=== PATIENT | male | born 1955 | race Caucasian/White ===

== ENCOUNTER → 2025-05-12 | Outpatient (CLI) | payer MEDICARE, SELFPAY ==
--- NOTE | 2025-05-12 11:14 | RAD_ITS ---
PROCEDURE: FINGER(S) MIN 2 VIEWS 05/12/2025 REASON FOR EXAM: CYST ON RIGHT INDEX TECHNIQUE: FINGER(S) MIN 2 VIEWS COMPARISON: No FINDINGS: Mild interphalangeal joint osteoarthritis. Overgrowth of the middle phalangeal head, best seen on the lateral view. No acute bone pathology. RAD/Finger(s) Min 2 Views IMPRESSION: Overgrowth of the middle phalangeal head which may represent a palpable lesion. Reading [facility]
== END | disposition home or self-care (01) ==
PROVIDERS: PCP Student in an Organized Health Care Education/Training Program; Referring Provider Surgery Plastic and Reconstructive Surgery; Visit Provider Surgery Plastic and Reconstructive Surgery
DX: M67.48 Ganglion, other site (principal)
CPT/HCPCS: 73140

== ENCOUNTER 2025-07-09 05:30 | Day surgery (SDC) | payer MEDICARE, SELFPAY ==
[2025-07-09] VITALS (8 sets, daily range): BP systolic 130–142; BP diastolic 71–77; PULSE 64–74; RESP 16–18; TEMP 36.1–36.6; O2SAT 94–96; BMI 31.4
--- OUTSIDE RECORDS SUMMARY | 2025-07-09 05:40 | XMS RPT_ITS | CCD ---
Author Organization [facility] Care Team Providers Care Crystal Calibrator Name Role Phone KOLTON PILAR Unavailable Unavailable KOLTON PILAR Unavailable Unavailable KOLTON PILAR Unavailable Unavailable NONE, NONE Unavailable Unavailable SKYE, LAZ Unavailable Unavailable SKYE, LAZ Unavailable Unavailable SKYE, LAZ Unavailable Unavailable SKYE, LAZ Unavailable Unavailable Bianca Capone MD Primary Care Provider Bianca Capone MD Primary Care Provider BIANCA CAPONE Attending Unavailable BIANCA CAPONE Primary Care Unavailable PARISH HENDERSON MD Attending Unavailable PARISH HENDERSON MD Consulting Unavailable PARISH HENDERSON MD Primary Care Unavailable PARISH HENDERSON MD Admitting Unavailable PROVIDER, UNKNOWN Consulting Unavailable PROVIDER, UNKNOWN Consulting Unavailable PARISH HENDERSON MD Attending Unavailable PARISH HENDERSON MD Consulting Unavailable PARISH HENDERSON MD Primary Care Unavailable PARISH HENDERSON MD Admitting Unavailable PROVIDER, UNKNOWN Consulting Unavailable PROVIDER, UNKNOWN Consulting Unavailable PARISH HENDERSON MD Attending Unavailable PARISH HENDERSON MD Consulting Unavailable PARISH HENDERSON MD Primary Care Unavailable PRAISH HENDERSON MD Admitting Unavailable PROVIDER, UNKNOWN Consulting Unavailable PROVIDER, UNKNOWN Consulting Unavailable Dr. Pilar Cole MD Attending Provider Dr. Parish Henderson MD Primary Care Provider Dr. Parish Henderson MD Referring Provider Dr. Pilar Cole MD Referring Provider Pilar Cole Attending Unavailable Marimar Álvarez Referring Unavailable Parish Henderson Primary Care Unavailable Pilar Cole Attending Unavailable Pilar Cole Referring Unavailable Parish Henderson Primary Care Unavailable Pilar Cole Referring Unavailable Parish Henderson Primary Care Unavailable Pilar Cole Attending Unavailable Allergies Allergy Classification Reported Allergen(s) Allergy Type Date of Onset Reaction(s) Facility Angiotensin Converting Enzyme (BRAXTON) Inhibitors (2 sources) Lisinopril Drug Allergy 0 Cough [facility] It (1 source) NO ALLERGY INFO; Translations: [NO ALLERGY INFO] Propensity to adverse reactions (disorder) [facility] Repository (4 sources) Lisinopril; Translations: [LISINOPRIL] Drug Allergy 0 Cough [facility] Medications Current Medications Medication Drug Class(es) Dates Sig (Normalized) Sig (Original) aspirin 81 mg delayed release oral tablet (5 sources) Platelet Aggregation Inhibitor, Nonsteroidal Anti-inflammatory Drug Start: 12-19-2018 take 1 tablet by mouth once daily aspirin 81 mg EC tablet Take 1 tablet by mouth 1 (one) time each day. 0 12/19/2018 Active atorvastatin 40 mg oral tablet (8 sources) HMG-CoA Reductase Inhibitor Start: 05-12-2025 take 1 tablet by mouth at bedtime Atorvastatin 40 mg tablet Active 40 mg PO AT BEDTIME May 12, 2025 12:00am Start: 04-15-2019 End: 12-24-2022 take 1 tablet by mouth once daily atorvastatin (Lipitor) 40 mg tablet Indications: Mixed hyperlipidemia Take 1 tablet (40 mg total) by mouth 1 (one) time each day. 90 tablet 3 12/29/2021 12/24/2022 Active cholecalciferol 0.05 mg oral tablet (5 sources) Vitamin D Start: 08-24-2020 take 1 capsule by mouth once daily cholecalciferol (Vitamin D-3) 50 mcg (2,000 unit) tablet Take 1 capsule by mouth 1 (one) time each day. 0 08/24/2020 Active Dulaglutide (6 sources) GLP-1 Receptor Agonist Start: 05-12-2025 Dulaglutide (Trulicity) 3 mg/0.5 mL pen injector Active 3 mg SC EVERY WEEK May 12, 2025 12:00am Start: 04-21-2022 Trulicity 3 mg /0.5 mL Indications: Mixed hyperlipidemia , Type 2 diabetes mellitus with diabetic mononeuropathy, with long-term current use of insulin ([facility]/HCC) , Pure hyperglyceridemia INJECT 0.5 ML (3 MG TOTAL) UNDER THE SKIN EVERY 7 (SEVEN) DAYS. 4 pen 11 04/21/2022 Active Start: 02-21-2022 Trulicity 3 mg /0.5 mL Indications: Mixed hyperlipidemia , Type 2 diabetes mellitus with diabetic mononeuropathy, with long-term current use of insulin (CMS/HCC) , Pure hyperglyceridemia INJECT 0.5 ML (3 MG TOTAL) UNDER THE SKIN EVERY 7 (SEVEN) DAYS. 4 pen 0 02/21/2022 Active Start: 05-19-2021 End: 10-28-2021 inject 1.5 mg by subcutaneous injection every week dulaglutide (Trulicity) 1.5 mg/0.5 mL pen injector Inject 1.5 mg under the skin 1 (one) time per week. 4 pen 3 05/19/2021 10/28/2021 Discontinued Start: 04-27-2021 End: 05-27-2021 inject 0.75 mg by subcutaneous injection every week dulaglutide (Trulicity) 0.75 mg/0.5 mL pen injector Indications: type 2 diabetes mellitus Inject 0.75 mg under the skin 1 (one) time per week. 4 pen 0 04/27/2021 05/27/2021 Active dulaglutide (Trulicity) 3 mg/0.5 mL pen injector (1 source) Start: 10-28-2021 dulaglutide (Trulicity) 3 mg/0.5 mL pen injector Indications: Mixed hyperlipidemia , Type 2 diabetes mellitus with diabetic mononeuropathy, with long-term current use of insulin (CMS/[facility]) , Pure hyperglyceridemia Inject 0.5 mL (3 mg total) under the skin every 7 (seven) days. 0.5 mL 3 10/28/2021 Active empagliflozin 10 mg oral tablet (2 sources) Sodium-Glucose Cotransporter 2 Inhibitor Start: 05-12-2025 take 1 tablet by mouth once daily Empagliflozin (Jardiance) 10 mg tablet Active 10 mg PO daily May 12, 2025 12:00am isopropyl alcohol 0.7 ml/ml medicated pad (5 sources) Start: 12-24-2018 alcohol swabs pads, medicated ALCOHOL PREP PADS 0 12/24/2018 Active levothyroxine sodium 0.025 mg oral tablet (7 sources) l-Thyroxine Start: 05-12-2025 take 1 tablet by mouth once daily in the morning Levothyroxine 25 mcg tablet Active 25 ug PO EVERY MORNING May 12, 2025 12:00am Start: 09-20-2021 take 1 tablet by olivia th once daily levothyroxine (Synthroid, Levoxyl) 25 mcg tablet TAKE 1 TABLET BY MOUTH ONCE EVERY MORNING,60 MINUTES BEFORE EATING OR DRINKING ANYTHING BESIDES WATER 90 tablet 3 09/20/2021 Active Start: 12-31-2020 levothyroxine (Synthroid, Levoxyl) 25 mcg tablet PLEASE SEE ATTACHED FOR DETAILED DIRECTIONS 0 12/31/2020 Active losartan potassium 50 mg oral tablet (8 sources) Angiotensin 2 Receptor Ferdinand Start: 05-12-2025 take 1 tablet by mouth once daily Losartan 50 mg tablet Active 50 mg PO daily May 12, 2025 12:00am Start: 02-16-2022 take 1 tablet by olivia th once daily losartan (Cozaar) 50 mg tablet Indications: Essential (primary) hypertension TAKE 1 TABLET (50 MG TOTAL) BY MOUTH EVERY NIGHT. SKIP DOSE OF THIS MEDICATION IF YOU ARE LIGHTHEADED, DIZZY, OR IF YOU HAVE OTHER SYMPTOMS OF LOW BP 90 tablet 3 02/16/2022 Active Start: 02-23-2021 take 1 tablet by olivia th once daily losartan (Cozaar) 50 mg tablet Take 1 tablet (50 mg total) by mouth every night. SKIP DOSE OF THIS MEDICATION IF YOU ARE LIGHTHEADED, DIZZY, OR IF YOU HAVE OTHER SYMPTOMS OF LOW BP 90 tablet 3 02/23/2021 Active Start: 08-24-2020 End: 02-23-2021 take 1 tablet by mouth once daily losartan (Cozaar) 25 mg tablet Take 1 tablet by mouth every night. SKIP DOSE OF THIS MEDICATION IF YOU ARE LIGHTHEADED, DIZZY, OR IF YOU HAVE OTHER SYMPTOMS OF LOW BP 0 08/24/2020 02/23/2021 Discontinued (Reorder) metFORMIN hydrochloride 1000 mg oral tablet (7 sources) Biguanide Start: 05-12-2025 take 1 tablet by mouth twice daily Metformin 1,000 mg tablet Active 1000 mg PO TWICE A DAY May 12, 2025 12:00am Start: 09-20-2021 take 1 tablet by olivia th twice daily metFORMIN (Glucophage) 1,000 mg tablet TAKE 1 TABLET BY MOUTH TWICE A DAY 180 tablet 4 09/20/2021 Active Start: 01-01-2021 take 1 tablet by olivia th twice daily metFORMIN (Glucophage) 1,000 mg tablet Take 1 tablet by mouth 2 (two) times a day. 0 01/01/2021 Active omega-3 acid ethyl esters (u sp) 1000 mg oral capsule (5 sources) Start: 10-27-2021 omega-3 acid e thyl esters (Lovaza) 1 gram capsule Take 2 capsules (2 g total) by mouth 2 (two) times a day. 360 capsule 3 10/27/2021 Active Start: 11-13-2020 omega-3 acid e thyl esters (Lovaza) 1 gram capsule Take 2 capsules by mouth 2 (two) times a day. 0 11/13/2020 Active [place]-3 Acid Ethyl Esters 1 gram capsule (2 sources) Start: 05-12-2025 [place]-3 Acid E thyl Esters 1 gram capsule Active 2 NMA PO TWICE A DAY May 12, 2025 12:00am SAW PALMETTO ORAL (5 sources) Start: 12-19-2018 take 750 mg by mouth twice daily SAW PALMETTO ORAL Take 750 mg by mouth 2 (two) times a day. 0 12/19/2018 Active Start: 12-19-2018 take 1500 mg by mout h twice daily SAW PALMETTO ORAL Take 1,500 mg by mouth 2 (two) times a day. 0 12/19/2018 Active sharps container (Sharps Container) (5 sources) Start: 12-24-2018 sharps contain er (Sharps Container) TO BE USED FOR USED SHARPS 0 12/24/2018 Active SITagliptin 100 mg oral tablet (9 sources) Dipeptidyl Peptidase 4 Inhibitor Start: 05-12-2025 take 1 tablet by mouth once daily Sitagliptin Phosphate (Januvia) 100 mg tablet Active 100 mg PO daily May 12, 2025 12:00am Start: 05-20-2022 take 1 tablet by olivia th once daily Januvia 100 mg tablet Indications: Pure hyperglyceridemia , Type 2 diabetes mellitus with diabetic mononeuropathy (CMS/HCC) TAKE 1 TABLET (100 MG TOTAL) BY MOUTH 1 (ONE) TIME EACH DAY. 90 tablet 1 05/20/2022 Active Start: 02-23-2021 take 1 tablet by olivia th once daily SITagliptin (Januvia) 100 mg tablet Indications: Pure hyperglyceridemia , Type 2 diabetes mellitus with diabetic mononeuropathy (CMS/HCC) Take 1 tablet (100 mg total) by mouth 1 (one) time each day. 180 tablet 3 02/23/2021 Active Start: 01-11-2021 End: 02-23-2021 take 1 tablet by mouth once daily Januvia 50 mg tablet Indications: Type 2 diabetes mellitus with diabetic mononeuropathy (CMS/HCC) , Pure hyperglyceridemia TAKE 1 TABLET BY MOUTH EVERY DAY 30 tablet 3 01/11/2021 02/23/2021 Discontinued (Reorder) Start: 08-24-2020 End: 02-23-2021 take 1 tablet by mouth once daily SITagliptin (Januvia) 25 mg tablet Take 1 tablet by mouth 1 (one) time each day. 0 08/24/2020 02/23/2021 Discontinued Completed/Discontinued Medications Medication Drug Class(es) Dates Sig (Normalized) Sig (Original) alpha lipoic acid powder powder (1 source) Start: 12-24-2018 End: 02-23-2021 alpha lipoic acid powder powder ALPHA-LIPOIC ACID POWD 0 12/24/2018 02/23/2021 Discontinued 3 ml insulin glargine 100 unt/ml pen injector (3 sources) Insulin Analog Start: 09-13-2019 End: 10-28-2021 insulin glargine (Lantus Solostar U-100 Insulin) 100 unit/mL (3 mL) injection Inject 45 Units under the skin every night. 0 09/13/2019 10/28/2021 Discontinued Start: 09-13-2019 insulin glargi ne (Lantus Solostar U-100 Insulin) 100 unit/mL (3 mL) injection Inject 50 Units under the skin every night. 0 09/13/2019 Active Problems Active Problems Problem Classification Problem Date Documented Da te Episodic/Chronic Diabetes mellitus with complications (12 sources) Type 2 diabetes mellitus; Translations: [Type 2 diabetes mellitus with diabetic mononeuropathy] Onset: 12-24-2018 Chronic Diabetes mellitus without complication (6 sources) Diabetes mellitus without mention of complication, type II or unspecified type, not stated as uncontrolled; Translations: [Type 2 diabetes mellitus without complications] Onset: 12-18-2017 08-16-2022 Chronic Disorders of lipid metabolism (17 sources) Mixed hyperlipidemia; Translations: [Mixed hyperlipidemia] Onset: 12-18-2017 Chronic Essential hypertension (5 sources) Essential (primary) hypertension; Translations: [Unspecified essential hypertension] Onset: 12-18-2017 Chronic Immunizations and screening for infectious disease (2 sources) Immunization due; Translations: [Encounter for immunization] Episodic Influenza (1 source) Influenza; Translations: [Influenza due to unidentified influenza virus with other respiratory manifestations] Episodic Other and unspecified benign neoplasm (2 sources) Polyp of colon; Translations: [Polyp of colon] Onset: 08-16-2022 Episodic Other connective tissue disease (3 sources) Digital mucous cyst; Translations: [Ganglion, unspecified hand] 05-12-2025 Episodic Other connective tissue disease (1 source) Ganglion, other site; Translations: [Ganglion, other site] Onset: 05-24-2025 Episodic Other connective tissue disease (1 source) Ganglion, unspecified hand; Translations: [Ganglion, unspecified hand] Onset: 06-19-2025 Episodic Thyroid disorders (9 sources) Hypothyroidism; Translations: [Hypothyroidism, unspecified] Onset: 06-27-2019 Chronic Past or Other Problems Problem Classification Problem Date Documented Da te Episodic/Chronic Acquired foot deformities (1 source) Talipes planus; Translations: [Flat foot [pes planus] (acquired), unspecified foot] Onset: 03-06-2019 08-16-2022 Episodic Diabetes mellitus without complication (1 source) Diabetes mellitus without complication; Translations: [DM2/NOS UNCOMP NSU] Onset: 01-31-2018 Other connective tissue disease (5 sources) Swelling of toe of left foot; Translations: [Other specified soft tissue disorders] Onset: 12-24-2018 01-04-2021 Episodic Other lower respiratory disease (5 sources) Dry cough; Translations: [Cough] Onset: 02-10-2020 Resolved: 08-16-2022 01-04-2021 Episodic Other skin disorders (5 sources) Change in skin lesion; Translations: [Disorder of the skin and subcutaneous tissue, unspecified] Onset: 12-24-2018 01-04-2021 Episodic Other skin disorders (5 sources) Foot callus; Translations: [Corns and callosities] Onset: 12-24-2018 01-04-2021 Episodic Skin and subcutaneous tissue infections (5 sources) Cellulitis and abscess of foot, except toes; Translations: [Cellulitis of right lower limb] Onset: 05-03-2017 Episodic Unclassified (10 sources) Encounter for screening for malignant neoplasm of prostate; Translations: [Screening for malignant neoplasms of prostate] Onset: 12-18-2017 Episodic Unclassified (1 source) FOOT CELLULITIS; Translations: [FOOT CELLULITIS] Onset: 05-03-2017 Results Test Name Value Interpretation Reference Range Facil ity Finger(s) Min 2 Viewson 04-16 Finger(s) Min 2 Views [facility] [address] [place], [place] [id number] Finger(s) Min 2 Views MR#: [id number] Acct: [id number] Name: VIVEK WASHBURN JrBrice Rep #: [id number] : 1955 M 69 From: Eugene Cancino MD PCP: Dr. Parish Henderson MD Status: REG CLI Study: Finger(s) Min 2 Views Date of Exam: 05/12/25 Exam# [id number] Ordering Dr: Pilar Cole MD PROCEDURE: FINGER(S) MIN 2 VIEWS 05/12/2025 REASON FOR EXAM: CYST ON RIGHT INDEX TECHNIQUE: FINGER(S) MIN 2 VIEWS COMPARISON: No FINDINGS: Mild interphalangeal joint osteoarthritis. Overgrowth of the middle phalangeal head, best seen on the lateral view. No acute bone pathology. RAD/Finger(s) Min 2 Views IMPRESSION: Overgrowth of the middle phalangeal head which may represent a palpable lesion. Reading Location: [facility] CC: Dr. Pilar Cole MD; Dr. Parish Henderson MD Livestock Inspector: Signed Normal [facility] Plastic Surgery Visit Report on 05-12-2025 Plastic Surgery Visit Report [facility] Plastic Reconstructive Surgery [address], [address] [place], [place] [address] OFFICE VISIT Date of Service: 05/12/25 MR#: [id number] Acct: [id number] Name: VIVEK WASHBURN Jr. Rep #: [id number] : 1955 Provider: Dr. Pilar Cole MD Age/Sex: 69/M Location: [facility] Status: Signed Intake Vital Signs 05/12/25 10:40 Height 6 ft 1 in Weight: 242 lb BMI 31.9 BP 134/76 H Blood Pressure Location Rt brachial Position Sitting Respiration 18 Pulse 67 Temp 97.9 F Pulse Oximetry (%) 95 Oxygen Delivery Method room air Intake Visit Reasons: MYXOID CYST R HAND Chief Complaint: cyst right index finger Allergies No Known Allergies Allergy (Unverified 05/12/25 10:41) Medications ???Medication ???Instructions ???Recorded ???Confirmed ???Type atorvastatin 40 mg tablet 40 mg PO QHS 05/12/25 05/12/25 His tory dulaglutide 3 mg/0.5 mL 3 mg subcut QWEEK 05/12/25 5 History subcutaneous pen injector (Trulicity) empagliflozin 10 mg tablet 10 mg PO QDAY 05/12/25 05/12/25 Hi story (Jardiance) levothyroxine 25 mcg tablet 25 mcg PO QAM 05/12/25 05/12/25 Hi story losartan 50 mg tablet 50 mg PO QDAY 05/12/25 05/12/25 Hi story metformin 1,000 mg tablet 1,000 mg PO BID 05/12/25 05/12/25 History omega-3 acid ethyl esters 1 gram 2 cap PO BID 05/12/25 05/12/25 His tory capsule sitagliptin phosphate 100 mg 100 mg PO QDAY 05/12/25 05/12/25 H istory tablet (Januvia) Have you fallen in the past year?: Yes (hurt knee -bruising) PFSH Medical History High cholesterol Hypertension Diabetes Bone fracture Back problem Arthritis Surgical History H/O hernia repair Family History Other Anxiety CVA (cerebral vascular accident) Colon cancer Diabetes Heart disease Skin cancer Social History Smoking Status: Never smoker alcohol intake: never substance use type: does not use additional social history: denies use of aspirin and ibuprofen pt denies vaping, denies edibles, denies marijuana use denies any family history of blood clots HPI MYXOID CYST R HAND Details: The patient is a 69-year-old male presenting with a right index finger cyst. The cyst has been present for approximately four months, initially appearing as a wart-like lesion with a clear liquid discharge, which was later identified as joint fluid. The patient attempted self-treatment with wart medication, resulting in skin peeling and temporary improvement. The patient has a history of arthritis, which was unexpectedly diagnosed during a recent consultation. There is a suspicion of a bone spur contributing to the cyst formation, as suggested by a previous physician (referred to plastics by dermatology, Dr. Álvarez). The patient has a history of diabetes mellitus, with a recent hemoglobin A1c level around 7.0%. The patient is on medication for diabetes and has been advised to avoid high-sugar foods, such as ice cream. The patient has a significant past medical history of traumatic amputation of the long finger at age 21, which was surgically reattached but later removed due to infection risk. ROS: - Musculoskeletal: Denies pain with axial loading of the right index finger - Endocrine: Reports diabetes mellitus, recent A1c around 7.0% Attestation: Documentation on this patient encounter was supported using ambient scribe technology/ voice AI technology. The patient consented to recording for the purpose of documenting the encounter. Provider reviewed content of the generated note prior to signature. ROS General General: Yes good health; No fatigue, fever(s) or weight loss HENMT HENMT: No rhinitis, sore throat/mouth sore, nasal congestion, contacts or glaucoma Endo Endocrine: No thyroid disease, polydipsia, heat intolerance, cold intolerance, hepatitis or excessive urine Skin Skin: No Bleeding, bruising, changing moles or suspicious lesion Musc Musculoskeletal: Yes joint pain and joint stiffness; No muscle weakness, back pain, osteoarthritis or Muscle aches/ myalgia Neuro Neurological: No headache(s), No lightheadedness and No numbness Cardio Cardiovascular: No chest pain, pacemaker, fatigue or shortness of breat with exertion Psych Psychiatric: No depression, claustrophobia or anxiety Resp Respiratory: No spitting up, shortness of breath, sleep apnea, asthma, emphysema, TB, Cough or Smoker Gastro Gastrointestinal: No diarrhea, constipation, blood in stool, nausea, vomiting or abdominal bloating Les Hematologic: No anemia, No bleeding and No abn (more content not included)... Normal [facility] T4-FREE (FREE THYROXINE)on 0 05-06-2025 Free T4 [Mass/Vol] 0.96 ng/dL Normal 0.76 - 1.46 [facility] Comment on above: Result Comment: P otential of falsely elevated results when biotin concentrations are > 10 ng/mL. Performed By: #### 2 [id number] #### [place] [address] TSHon 05-06-2025 TSH Qn 3.00 m[IU]/L Normal 0.35 - 3.74 [facility] Comment on above: Performed By: #### 2 [id number] #### [place] [address] CBC + DIFFon 03-12-2025 Baso # 0.02 x10EE3/UL Normal 0.00 - 0.10 [facility] Comment on above: Performed By: #### 2 [id number] #### [place] [address] Basophils/100 WBC (Bld) 0.3 % Normal 0.0 - 2.0 [facility] Comment on above: Performed By: #### 2 [id number] #### [place] [address] CBC + DIFF Normal [facility] Comment on above: Result Comment: CBC- COMPLETE BLOOD COUNT Performed By: #### 2 [id number] #### [place] [address] EO # 0.17 x10EE3/UL Normal 0.00 - 0.50 [facility] Comment on above: Performed By: #### 2 [id number] #### [place] [id number],[place] [address] Eosinophils/100 WBC (Bld) 2.7 % Normal 0.0 - 7.0 [facility] Comment on above: Performed By: #### 2 [id number] #### [facility],[address] [place] [address] Erythrocyte distribution width (RBC) [Ratio] 13.3 % Normal 12.0 - 15.6 [facility] Comment on above: Performed By: #### 2 [id number] #### [facility],[address] [place] [address] Hematocrit (Bld) [Volume fraction] 46.5 % Normal 40.0 - 52.0 [facility] Comment on above: Performed By: #### 2 [id number] #### [facility],[address] [place] [address] Hemoglobin (Bld) [Mass/Vol] 15.9 g/dL Normal 13.0 - 17.5 [facility] Comment on above: Performed By: #### 2 [id number] #### [facility],[address] [place] [address] Lymph # 2.10 x10EE3/UL Normal 0.80 - 2.80 [facility] Comment on above: Performed By: #### 2 01985 #### [facility],[address] [place], [place] [id number] Lymphocytes/100 WBC (Bld) 33.5 % Normal 20.0 - 45.0 [facility] Comment on above: Performed By: #### 2 [id number] #### [facility],[address] [place] [address] MANUAL DIFF N/A Normal [facility] Comment on above: Performed By: #### 2 [id number] #### [facility],[address] [place] [address] MCH (RBC) [Entitic mass] 33 pg Normal 27 - 33 [facility] Comment on above: Performed By: #### 2 [id number] #### [facility],[address] [place] [address] MCHC 34 X10 3 Normal 32 - 36 [facility] Comment on above: Performed By: #### 2 04643 #### [facility],[address] [place], [place] [id number] MCV (RBC) [Entitic vol] 97 fL Normal 81 - 98 [facility] Comment on above: Performed By: #### 2 [id number] #### [facility],[address] [place] [address] [place] # 0.61 x10EE3/UL Normal 0.20 - 1.00 [facility] Comment on above: Performed By: #### 2 05842 #### [facility],[address] [place] [address] MONOS % 9.7 % Normal 0.0 - 10.0 [facility] Comment on above: Performed By: #### 2 [id number] #### [facility],[address] [place], [place] [id number] Morphology Prabhu (Bld) [Interp] N/A Normal [facility] Comment on above: Performed By: #### 2 [id number] #### [facility],[address] [place] [address] Neut # 3.37 x10EE3/UL Normal 1.50 - 7.10 [facility] Comment on above: Performed By: #### 2 92947 #### [facility],[address] [place], [place] [id number] Neutrophils/100 WBC (Bld) 53.9 % Normal 46.0 - 76.0 [facility] Comment on above: Performed By: #### 2 30559 #### [facility],[address] [place], [place] [id number] PLATELET 220 x10EE3/UL Normal 150 - 450 [facility] Comment on above: Performed By: #### 2 86075 #### [facility],[address] [place] [address] Platelet mean volume (Bld) [Entitic vol] 7.2 fL Normal 6.4 - 10.5 [facility] Comment on above: Result Comment: AUTO MATED DIFFERENTIAL Performed By: #### 2 [id number] #### [facility],[address] [place] [address] RBC 4.80 x 10EE6/UL Normal 4.50 - 6.00 [facility] Comment on above: Performed By: #### 2 47625 #### [facility],[address] [place] [address] WBC 6.3 x 10EE3/UL Normal 4.5 - 10.8 [facility] Comment on above: Performed By: #### 2 [id number] #### [facility],[address] [place] [address] [id number] CMP with eGFRon 03-12-2025 AGE 69 years Normal [facility] Comment on above: Performed By: #### 2 12550 #### [facility],[address] [place] [address] 30889 Albumin [Mass/Vol] 4.1 g/dL Normal 3.4 - 5.0 [facility] Comment on above: Performed By: #### 2 50839 #### [facility],[address] [place] [address] 88989 Albumin/Globulin [Mass ratio] 1.3 {ratio} Normal 0.9 - 1.6 [facility] Comment on above: Performed By: #### 2 47643 #### [facility],[address] [place] [address] 40106 ALK PHOS 50 U/L Normal 46 - 116 [facility] Comment on above: Performed By: #### 2 31707 #### [facility],[address] [place] [address] 81284 ALT [Catalytic activity/Vol] 39 U/L Normal 16 - 63 [facility] Comment on above: Performed By: #### 2 32071 #### [facility],[address] [place] [address] 04157 Anion gap [Moles/Vol] 13 mmol/L Normal 10 - 20 [facility] Comment on above: Performed By: #### 2 54883 #### [facility],[address] [place] [address] 99201 AST [Catalytic activity/Vol] 18 U/L Normal 15 - 37 [facility] Comment on above: Performed By: #### 2 27550 #### [facility],[address] [place] [address] 81979 B/C RATIO 21 ratio Normal 0 - 30 [facility] Comment on above: Performed By: #### 2 18464 #### [facility],[address] [place] [address] 68401 Bilirubin [Mass/Vol] 0.8 mg/dL Normal 0.2 - 1.0 [facility] Comment on above: Performed By: #### 2 56301 #### [facility],[address] [place] [address] 82852 Calcium [Mass/Vol] 9.0 mg/dL Normal 8.5 - 10.1 [facility] Comment on above: Performed By: #### 2 05408 #### [facility],[address] [place] [address] 09829 Chloride [Moles/Vol] 104 mmol/L Normal 98 - 107 [facility] Comment on above: Performed By: #### 2 08714 #### [facility],[address] [place] [address] 62520 CMP with eGFR Normal [facility] Comment on above: Result Comment: COMP REHENSIVE METABOLIC PANEL Performed By: #### 2 16028 #### [facility],[address] [place] [address] 86794 CO2 [Moles/Vol] 28.5 mmol/L Normal 21.0 - 32.0 [facility] Comment on above: Performed By: #### 2 74997 #### [facility],[address] [place] [address] 71311 Creatinine [Mass/Vol] 0.76 mg/dL Normal 0.70 - 1.30 [facility] Comment on above: Performed By: #### 2 82807 #### [facility],[address] [place] [address] 91829 GFR/1.73 sq M.predicted among non-blacks MDRD (S/P/Bld) [Vol rate/Area] mL/min/{1.73_m2} Normal 60 - 999 [facility] Comment on above: Performed By: #### 2 01623 #### [facility],[address] [place] [address] Result Comment: ACCO RDING TO THE NATIONAL KIDNEY DISEASE EDUCATION PROGRAM(NKDE), A NORMAL eGFR IS A VALUE GREATER THAN OR EQUAL TO 60 ML/MIN/1.73 SQ METERS. CHRONIC KIDNEY DISEASE: <60mL/MIN/1.73 SQ METERS KIDNEY FAILURE: <15mL/MIN/1.73 SQ METERS THIS TEST SHOULD ONLY BE USED FOR PATIENTS 18 YEARS OF AGE AND OLDER. Globulin (S) [Mass/Vol] 3.2 g/dL Normal 1.5 - 3.8 [facility] Comment on above: Performed By: #### 2 58142 #### [facility],[address] [place] [address] 72794 Glucose [Mass/Vol] 120 mg/dL High 74 - 106 [facility] Comment on above: Performed By: #### 2 57375 #### [facility],[address] [place] [address] 74575 Potassium [Moles/Vol] 4.0 mmol/L Normal 3.5 - 5.1 [facility] Comment on above: Performed By: #### 2 25524 #### [address] [address] Protein [Mass/Vol] 7.3 g/dL Normal 6.4 - 8.2 [facility] Comment on above: Performed By: #### 2 45980 #### [facility],[address] [place] [address] 46273 Sodium [Moles/Vol] 141 mmol/L Normal 136 - 145 [facility] Comment on above: Performed By: #### 2 32372 #### [facility],[address] [place] [address] 86219 Urea nitrogen [Mass/Vol] 16 mg/dL Normal 7 - 18 [facility] Comment on above: Performed By: #### 2 24311 #### [facility],[address] [place] [address] 98994 HEMOGLOBIN A1C (POM)on 03-12 Glucose [Mass/Vol] 154.2 mg/dL High 0.0 - 0.0 [facility] Comment on above: Result Comment: BLDo HEMOGLOBIN A1C REFERENCE RANGESBLDo Suggested Diagnosis HbA1c(%) HbA1C (mmol/mol Diabetic >/=6.5 >/=48 Prediabetes 5.7 - 6.4 39 - 47 Normal <5.7 <39 Performed By: #### 2 56641 #### [facility],[address] [place] [address] 34496 HbA1c (Bld) [Mass fraction] 7.0 % High 0.0 - 6.5 [facility] Comment on above: Performed By: #### 2 61554 #### [facility],[address] [place] [address] 06771 LIPID PROFILEon 03-12-2025 Cholesterol [Mass/Vol] 95 mg/dL Normal 0 - 240 [facility] Comment on above: Performed By: #### 2 03876 #### [facility],[address] [place] [address] 16266 Cholesterol in HDL [Mass/Vol] 44 mg/dL Normal 40 - 60 [facility] Comment on above: Performed By: #### 2 02837 #### [facility],[address] [place] [address] 75225 Cholesterol in LDL [Mass/Vol] 32 mg/dL Normal 0 - 129 [facility] Comment on above: Performed By: #### 2 11710 #### [facility],[address] [place] [address] 26318 Cholesterol.total/Adrianna sterol in HDL [Mass ratio] 2.2 {ratio} Normal 0.0 - 5.0 [facility] Comment on above: Performed By: #### 2 19200 #### [facility],[address] [place] [address] 48798 Lipid 1996 panel Normal [facility] Comment on above: Result Comment: LIPI D PROFILE Performed By: #### 2 99681 #### [facility],[address] [place] [address] 85818 Triglyceride [Mass/Vol] 97 mg/dL Normal 0 - 150 [facility] Comment on above: Performed By: #### 2 40861 #### [facility],[address] [place] [address] 39161 TSHon 03-12-2025 TSH Qn 4.54 m[IU]/L High 0.35 - 3.74 [facility] Comment on above: Performed By: #### 2 49591 #### [facility],[address] [place] [address] 41526 HEMOGLOBIN A1C (POM)on 09-19 Glucose [Mass/Vol] 142.7 mg/dL High 0.0 - 0.0 [facility] Comment on above: Result Comment: BLDo HEMOGLOBIN A1C REFERENCE RANGESBLDo Suggested Diagnosis HbA1c(%) HbA1C (mmol/mol Diabetic >/=6.5 >/=48 Prediabetes 5.7 - 6.4 39 - 47 Normal <5.7 <39 Performed By: #### 2 52065 #### [facility],[address] [place] [address] 23239 HbA1c (Bld) [Mass fraction] 6.6 % High 0.0 - 6.5 [facility] Comment on above: Performed By: #### 2 58827 #### [facility],[address] [place] [address] HEMOGLOBIN A1Con 08-16-2022 Glucose [Mass/Vol] 206 mg/dL Normal [facility] Comment on above: Performed By: #### L AB90 #### [facility] [address] [place] [address] HbA1c (Bld) [Mass fraction] 8.8 % High 4.1-5.6 [facility] Comment on above: Result Comment: REFERENCE RANGE A1C: NORMAL = 4.1 TO 5.6 PREDIABETIC RANGE = 5.7 TO 6.4 DIABETIC RANGE = >= 6.5 Performed By: #### L AB90 #### [facility] [address] [place] [address] LIPID PANELon 08-16-2022 CHOL/HDL RATIO 3.4 unit/s Normal 0.1-4.0 [facility] Comment on above: Performed By: #### L AB18 #### [facility] [address] [place] [address] Cholesterol [Mass/Vol] 98 mg/dL Normal <=200 [facility] Comment on above: Result Comment: THE NATIONAL CHOLESTEROL EDUCATION PROGRAM HAS PUBLISHED REFERENCE CHOLESTEROL VALUES FOR CARDIOVASCULAR RISK TO BE: DESIRABLE: LESS THAN 200 mg/dL BORDERLINE HIGH: 200-239 mg/dL HIGH: GREATER THAN EQUAL TO 240 mg/dL Performed By: #### L AB18 #### [facility] [address] [place] [address] Magnesium [Mass/Vol] 134 mg/dL Normal <=150 [facility] Comment on above: Result Comment: NORMAL: LESS THAN 150 MG/DL BORDERLINE OR HIGH: 150-199 MG/DL HIGH: 200-499 MG/DL VERY HIGH: GREATER THAN OR EQUAL TO 500 MG/DL Performed By: #### L AB18 #### [facility] [address] [place] [address] Magnesium [Mass/Vol] 29 mg/dL Low >=60 [facility] Comment on above: Result Comment: CARDIOVASCULAR RISK: LOW - GREATER THAN OR EQUAL TO 60 mg/dL CARDIOVASCULAR RISK: HIGH - LESS THAN 40 mg/dL Performed By: #### L AB18 #### [facility] [address] [place] [address] Magnesium [Mass/Vol] 42 mg/dL Normal 10-130 [facility] Comment on above: Result Comment: RISK LEVELS: < 130 MG/DL: DESIRABLE LDL 130-159 MG/DL: BORDERLINE HIGH RISK LDL >OR= 160 MG/DL: HIGH RISK LDL Performed By: #### L AB18 #### [facility] [address] [place] [address] PATIENT FASTING AT COLLECTION Yes Normal Yes or No [facility] Comment on above: Performed By: #### L AB18 #### [facility] [address] [place] [address] Monofilament Exam (POC)on Interpretation and review of laboratory results Abnormal [facility] Left Foot Monofilament Abnormal [facility] Comment on above: Could not feel monof ilament in multiple places Right Foot Monofilament Abnormal [facility] Comment on above: could not feel monof ilament in muliple places [facility] HbA1c (Bld) [Mass fraction]O rdered By: Mago Hannon on 03-04-2022 Average glucose Estimated from glycated hemoglobin (Bld) [Moles/Vol] 192 mg/dL [facility] Interpretation and review of laboratory results Abnormal [facility] Hemoglobin [id number] By: Jesika Hannon on 03-04-2022 HbA1c (Bld) [Mass fraction] 8.3 % High 4.1 - 5.6 % [facility] Comment on above: REFERENCE RANGE A1C: NORMAL = 4.1 TO 5.6 PREDIABETIC RANGE = 5.7 TO 6.4 DIABETIC RANGE = >= 6.5 Microalbumin/Creatinine rati o panel (U)on 03-04-2022 Albumin DL <= 20 mg/L (U) [Mass/Vol] 1.5 mg/dL 0.3 - 1.9 mg/dL [facility] Albumin/Creatinine DL <= 20 mg/L (U) [Mass ratio] 10 ug/mG [facility] Comment on above: REFERENCE RANGE: LESS THAN 30 MCG/MG CREATININE Creatinine (U) [Mass/Vol] 147.4 mg/dL [facility] No Panel Informationon 03-04 [facility] PSA DIAGNOSTICon 03-04-2022 Interpretation and review of laboratory results Abnormal [facility] Prostate specific Ag [Mass/Vol] 14.33 ng/mL High <4.0 [facility] TSHon 03-04-2022 TSH Qn 2.30 m[IU]/L [facility] TSH Qnon 03-04-2022 Interpretation and review of laboratory results Normal [facility] Monofilament Exam (POC)on Interpretation and review of laboratory results Abnormal [facility] Left Foot Monofilament Abnormal [facility] Right Foot Monofilament Abnormal L [facility] Basic metabolic 1998 panelOr dered By: Bianca Capone on 02-23-2021 Anion gap [Moles/Vol] 11.4 mmol/L [facility] Calcium [Mass/Vol] 9.4 mg/dL 8.7 - 10. 4 mg/dL [facility] Chloride [Moles/Vol] 105 mmol/L 99 - 109 mmol/L [facility] CO2 [Moles/Vol] 26 mmol/L 20 - 31 mmol/L [facility] Creatinine [Mass/Vol] 0.6 mg/dL Low 0.7 - 1.3 mg/d L [facility] GFR/1.73 sq M.predicted MDRD (S/P/Bld) [Vol rate/Area] 107.0 mL/min/{1.73_m2} mL/min/1.73m*2 [facility] Comment on above: GFR LESS THAN 60 mL/min/1.73m2: SUGGESTIVE OF CHRONIC KIDNEY DISEASE. GFR LESS THAN 15 mL/min/1.73m2: SUGGESTIVE OF END STAGE RENAL DISEASE. Glucose [Mass/Vol] 174 mg/dL High 74 - 106 mg/dL [facility] Comment on above: NOTE IF THIS IS A FASTING SPECIMEN THE FOLLOWING RANGES APPLY: NORMAL 70 TO 99 mg/dL PREDIABETIC 100 TO 125 mg/dL DIABETIC >= 126 mg/dL Osmolality Calc [Osmolality] 279 mosm/kg 275 - 305 mosm/kg [facility] Potassium [Moles/Vol] 4.4 mmol/L 3.6 - 5.1 mmol/L [facility] Sodium [Moles/Vol] 138 mmol/L 132 - 146 mmol/L [facility] Urea nitrogen [Mass/Vol] 11 mg/dL 9 - 23 mg/dL [facility] Urea nitrogen/Creatinine [Mass ratio] 18.3 mg/mg [facility] Cholesterol in LDL Direct as say [Mass/Vol]Ordered By: Bianca Capone on 02-23-2021 Cholesterol in LDL [Mass/Vol] 51.8 mg/dL <=100 [facility] Comment on above: RISK LEVELS: OPTIMAL: LESS THAN 100 MG/DL NEAR OR ABOVE OPTIMAL: 100-129 MG/DL BORDERLINE HIGH: 130-159 MG/DL HIGH: 160-189 MG/DL VERY HIGH: GREATER THAN OR EQUAL 190 MG/DL Interpretation and review of laboratory results Normal [facility] Free T4 [Mass/Vol]Ordered By : Bianca Capone on 02-23-2021 Free T4 IA [Mass/Vol] 0.91 ng/dL 0.84 - 1.7 ng/dL [facility] HbA1c (Bld) [Mass fraction]O rdered By: Bianca Capone on 02-23-2021 Average glucose Estimated from glycated hemoglobin (Bld) [Moles/Vol] 194 mg/dL [facility] Interpretation and review of laboratory results Abnormal [facility] Hemoglobin [id number] By: Yanira Capone on 02-23-2021 HbA1c (Bld) [Mass fraction] 8.4 % High 4.1 - 5.6 % [facility] Comment on above: REFERENCE RANGE A1C: NORMAL = 4.1 TO 5.6 PREDIABETIC RANGE = 5.7 TO 6.4 DIABETIC RANGE = >= 6.5 Hepatic function 2000 panelO rdered By: Bianca Capone on 02-23-2021 Albumin BCG dye [Mass/Vol] 5.1 g/dL High 3.2 - 4.8 g/dL [facility] Albumin/Globulin [Mass ratio] 2.7 {ratio} High [facility] ALP [Catalytic activity/Vol] 42 U/L [facility] ALT [Catalytic activity/Vol] 61 U/L High [facility] AST [Catalytic activity/Vol] 35 U/L <=39 IU/L [facility] AST/Alanine aminotransferase [Catalytic ratio] 0.6 [facility] Bilirubin [Mass/Vol] 0.9 mg/dL 0.2 - 1.2 [facility] Bilirubin.direct [Mass/Vol] 0.3 mg/dL <=0.3 [facility] Globulin (S) [Mass/Vol] 1.9 g/dL L [facility] Protein [Mass/Vol] 7.0 g/dL 5.7 - 8.2 g/dL [facility] Microalbumin/Creatinine rati o panel (U)Ordered By: Bianca Capone on 02-23-2021 Albumin DL <= 20 mg/L (U) [Mass/Vol] 2.9 mg/dL High 0.3 - 1.9 mg/dL [facility] Albumin/Creatinine DL <= 20 mg/L (U) [Mass ratio] 28 ug/mG [facility] Comment on above: REFERENCE RANGE: LESS THAN 30 MCG/MG CREATININE Creatinine (U) [Mass/Vol] 103.9 mg/dL [facility] Interpretation and review of laboratory results Abnormal [facility] Monofilament Exam (POC)Order ed By: Bianca Capone on 02-23-2021 Interpretation and review of laboratory results Abnormal [facility] Left Foot Monofilament Abnormal [facility] Comment on above: No sensation noted o n top or bottom of foot. Right Foot Monofilament Abnormal L [facility] Comment on above: No sensation noted o n top or bottom of foot. [facility] No Panel InformationOrdered By: Bianca Capone on 02-23-2021 Interpretation and review of laboratory results Normal [facility] Interpretation and review of laboratory results Abnormal [facility] TSHOrdered By: Bianca Carpenter is on 02-23-2021 TSH Qn 4.48 m[IU]/L [facility] BASIC METABOLIC PANELon 06 Anion gap [Moles/Vol] 10.2 mmol/L Normal 8-22 [facility] Comment on above: Performed By: #### F T4, TSH #### [facility] [address] [place] [address] Calcium [Mass/Vol] 9.1 mg/dL Normal 8.7-10.4 [facility] Comment on above: Performed By: #### F T4, TSH #### [facility] [address] [place] [address] Chloride [Moles/Vol] 107 mmol/L Normal 99-109 [facility] Comment on above: Performed By: #### F T4, TSH #### [facility] [address] [place] [address] CO2 [Moles/Vol] 28 mmol/L Normal 20-31 [facility] Comment on above: Performed By: #### F T4, TSH #### [facility] [address] [place] [address] Creatinine [Mass/Vol] 0.8 mg/dL Normal 0.7-1.3 [facility] Comment on above: Performed By: #### F T4, TSH #### [facility] [address] [place] [address] GFR/1.73 sq M predicted among non-blacks MDRD (S/P/Bld) [Vol rate/Area] mL/min/{1.73_m2} Normal [facility] Comment on above: Result Comment: TO ESTIMATE GFR FOR AMERICANS MULTIPLY THE RESULT BY 1.21. GFR LESS THAN 60 mL/min/1.73m2: SUGGESTIVE OF CHRONIC KIDNEY DISEASE. GFR LESS THAN 15 mL/min/1.73m2: SUGGESTIVE OF END STAGE RENAL DISEASE. Performed By: #### F T4, TSH #### [address] [address] Glucose [Mass/Vol] 123 mg/dL High 74-106 [facility] Comment on above: Result Comment: NOTE IF THIS IS A FASTING SPECIMEN THE FOLLOWING RANGES APPLY: NORMAL 70 TO 99 mg/dL PREDIABETIC 100 TO 125 mg/dL DIABETIC >= 126 mg/dL Performed By: #### F T4, TSH #### [address] [address] Osmolality [Osmolality] 282 mOSM/kg Normal 275-305 [facility] Comment on above: Performed By: #### F T4, TSH #### [address] [address] Potassium [Moles/Vol] 3.7 mmol/L Normal 3.6-5.1 [facility] Comment on above: Performed By: #### F T4, TSH #### [address] [address] Sodium [Moles/Vol] 141 mmol/L Normal 132-146 [facility] Comment on above: Performed By: #### F T4, TSH #### [address] [address] Urea nitrogen [Mass/Vol] 11 mg/dL Normal 9-23 [facility] Comment on above: Performed By: #### F T4, TSH #### [address] [address] Urea nitrogen/Creatinine [Mass ratio] 13.8 mg/mg Normal 6-20 [facility] Comment on above: Performed By: #### F T4, TSH #### [facility] [address] [place] [address] CBC WITH DIFFERENTIALon 06-0 3-2020 ABSOLUTE BASOPHIL COUNT 0 10 3/uL Low 0.02-0.05 L [facility] Comment on above: Performed By: #### F T4, TSH #### [facility] [address] [place] [address] ABSOLUTE NEUTROPHIL COUNT 3.3 10 3/uL Normal 1.8-7.0 [facility] Comment on above: Performed By: #### F T4, TSH #### [address] [address] Basophils/100 WBC (Bld) 0.5 % Normal 0-1 L [facility] Comment on above: Performed By: #### F T4, TSH #### [address] [address] Eosinophils (Bld) [#/Vol] 0.2 10 3/uL Normal 0.05-0.25 [facility] Comment on above: Performed By: #### F T4, TSH #### [facility] [address] [place] [address] Eosinophils/100 WBC (Bld) 2.9 % Normal 1-4 [facility] Comment on above: Performed By: #### F T4, TSH #### [facility] [address] [place] [address] Hematocrit (Bld) [Volume fraction] 42.9 % Normal 41.0-53.0 [facility] Comment on above: Performed By: #### F T4, TSH #### [facility] [address] [place] [address] Hemoglobin (Bld) [Mass/Vol] 14.5 g/dL Normal 13.5-17.5 [facility] Comment on above: Performed By: #### F T4, TSH #### [facility] [address] [place] [address] Lymphocytes (Bld) [#/Vol] 2.0 10 3/uL Normal 1.5-3.0 [facility] Comment on above: Performed By: #### F T4, TSH #### [facility] [address] [place] [address] Lymphocytes/100 WBC (Bld) 33.8 % Normal 24-44 [facility] Comment on above: Performed By: #### F T4, TSH #### [facility] [address] [place] [address] MCH (RBC) [Entitic mass] 33.7 GM/DL Normal 31.0-37.0 [facility] Comment on above: Performed By: #### F T4, TSH #### [address] [address] MCV (RBC) [Entitic vol] 94.7 fL Normal 80.0-100.0 L [facility] Comment on above: Performed By: #### F T4, TSH #### [address] [address] MEAN CELL HEMOGLOBIN 31.9 PG Normal 26.0-34.0 [facility] Comment on above: Performed By: #### F T4, TSH #### [address] [address] Monocytes (Bld) [#/Vol] 0.5 10 3/uL Normal 0.1-1.0 [facility] Comment on above: Performed By: #### F T4, TSH #### [address] [address] Monocytes/100 WBC (Bld) 8.3 % High 1-7 L [facility] Comment on above: Performed By: #### F T4, TSH #### [facility] [address] [place] [address] Neutrophils/100 WBC (Bld) 54.5 % Normal 36-71 [facility] Comment on above: Performed By: #### F T4, TSH #### [address] [address] Platelet mean volume (Bld) [Entitic vol] 7.6 UM3 Normal 7.4-10.4 [facility] Comment on above: Performed By: #### F T4, TSH #### [facility] [address] [place] [address] Platelets (Bld) [#/Vol] 214 TH/MM3 Normal 140-440 L [facility] Comment on above: Performed By: #### F T4, TSH #### [facility] [address] [place] [address] RBC (Bld) [#/Vol] 4.54 MIL/MM3 Normal 4.50-5.90 [facility] Comment on above: Performed By: #### F T4, TSH #### [facility] [address] [place] [address] RED CELL DISTRIBUTION WID 12.8 UNITS Normal 11.5-14.5 [facility] Comment on above: Performed By: #### F T4, TSH #### [address] [address] WBC (Bld) [#/Vol] 6.0 TH/MM3 Normal 4.5-11.0 [facility] Comment on above: Performed By: #### F T4, TSH #### [address] [address] FREE T4 THYROXINEon 03-18-20 20 FREE T4 THYROXINE 0.96 NG/DL Normal 0.84-1.70 [facility] Comment on above: Performed By: #### F T4, TSH #### [address] [address] HGB A1Con 03-18-2020 HbA1c (Bld) [Mass fraction] 220 mg/dL Normal [facility] Comment on above: Performed By: #### F T4, TSH #### [facility] [address] [place] [address] HbA1c (Bld) [Mass fraction] 9.3 % High 4.1-5.6 [facility] Comment on above: Result Comment: REFERENCE RANGE A1C NORMAL= 4.1 TO 5.6 PREDIABETIC RANGE = 5.7 TO 6.4 DIABETIC RANGE = >= 6.5 Performed By: #### F T4, TSH #### [facility] [address] [place] [address] LDL CHOLESTEROL(DIRECT)on Cholesterol in LDL [Mass/Vol] 53.0 mg/dL Normal < 100 [facility] Comment on above: Result Comment: RISK LEVELS OPTIMAL LESS THAN 100 MG/DL NEAR OR ABOVE OPTIMAL 100-129 MG/DL BORDERLINE HIGH 130-159 MG/DL HIGH 160-189 MG/DL VERY HIGH GREATER THAN OR EQUAL 190 MG/DL Performed By: #### F T4, TSH #### [facility] [address] [place] [address] LIVER HEPATIC FUNCTIONon Albumin [Mass/Vol] 4.5 g/dL Normal 3.2-4.8 [facility] Comment on above: Performed By: #### F T4, TSH #### [facility] [address] [place] [address] Albumin/Globulin [Mass ratio] 2.0 {ratio} Normal 0.9-2.0 [facility] Comment on above: Performed By: #### F T4, TSH #### [facility] [address] [place] [address] ALP [Catalytic activity/Vol] 43 U/L Normal 40-121 [facility] Comment on above: Performed By: #### F T4, TSH #### [facility] [address] [place] [address] ALT/SGPT 40 IU/L Normal 11-50 [facility] Comment on above: Performed By: #### F T4, TSH #### [facility] [address] [place] [address] AST/SGOT 21 IU/L Normal < 39 [facility] Comment on above: Performed By: #### F T4, TSH #### [facility] [address] [place] [address] 06178 Bilirubin [Mass/Vol] 0.9 mg/dL Normal 0.2-1.2 [facility] Comment on above: Performed By: #### F T4, TSH #### [facility] [address] [place] [address] Bilirubin.direct [Mass/Vol] 0.3 mg/dL Normal < 0.3 [facility] Comment on above: Performed By: #### F T4, TSH #### [facility] [address] [place] [address] 93048 Globulin (S) [Mass/Vol] 2.2 G/dL Normal [facility] Comment on above: Performed By: #### F T4, TSH #### [facility] [address] [place] [address] 04177 Protein [Mass/Vol] 6.7 g/dL Normal 5.7-8.2 [facility] Comment on above: Performed By: #### F T4, TSH #### [facility] [address] [place] [address] 10367 SGOT/SGPT RATIO 0.5 Normal 0-2 [facility] Comment on above: Performed By: #### F T4, TSH #### [facility] [address] [place] [address] 6[address] MAGNESIUMon 03-18-2020 Magnesium [Mass/Vol] 1.8 mg/dL Normal 1.5-2.3 [facility] Comment on above: Performed By: #### F T4, TSH #### [facility] [address] [place] [address] 96320 MICROALBUMIN/CREATon 020 CREATININE URINE 150.3 MG/DL Normal [facility] Comment on above: Performed By: #### F T4, TSH #### [facility] [address] [place] [address] 83693 MICROALBUMIN 0.9 MG/DL Normal 0.3-1.9 [facility] Comment on above: Performed By: #### F T4, TSH #### [address] [address] NORMALIZED MICROALBUMIN 6.0 MCG/MG Normal [facility] Comment on above: Result Comment: REFE RENCE RANGE: LESS THAN 30 MCG/MG CREATININE Performed By: #### F T4, TSH #### [address] [address] PSA-SCREENon 03-18-2020 PSA-SCREEN 8.4 NG/ML High < 4.00 [facility] Comment on above: Performed By: #### F T4, TSH #### [address] [address] THYROID STIMULATING HORMOon 03-18-2020 TSH Qn 2.9 uIU/mL Normal 0.4-5.4 [facility] Comment on above: Performed By: #### F T4, TSH #### [facility] [address] [place] [address] 7[address] FREE T4 THYROXINEon 12-11-19 20 FREE T4 THYROXINE 0.96 NG/DL Normal 0.84-1.70 [facility] Comment on above: Order Comment: PATIE NT FASTING LATESHA 04/03/19 1020 Performed By: #### F T4, TSH #### [facility] [address] [place] [address] 618[address] THYROID STIMULATING HORMOon 12-11-2019 TSH Qn 5.8 uIU/mL High 0.4-5.4 [facility] Comment on above: Order Comment: PATIE NT FASTING LATESHA 04/03/19 1020 Performed By: #### F T4, TSH #### [facility] [address] [place] [address] GLUCOMETER-FINGERSTICKon Glucose [Mass/Vol] 169 mg/dL High 78-118 [facility] Comment on above: Result Comment: ACCE PT RESULTS Performed By: #### G LUCOMETER #### POINT OF CARE INTERFACE Glucose [Mass/Vol] 159 mg/dL High 78-118 [facility] Comment on above: Result Comment: ACCE PT RESULTS Performed By: #### G LUCOMETER #### POINT OF CARE INTERFACE PDPRCGIon 10-02-2019 PDPRCG[place] [address] NAME: VIVEK WASHBURN ROOM NO: UNIT NO: [id number] LOC: [facility] ADM/SVC: 10/02/19 : 59 SEX: M DIS: PT STATUS: REG CLI PCP: BIANCA CAPONE MD ([facility]) Referring Provider: * This dictation was created using Voice Recognition Software. Phonetic and/or minor grammatical errors may exist. Any corrections and/or addendums to this report will be located at the bottom of the report. DATE OF PROCEDURE: 10/02/19 Procedure Report - Colonoscopy * PRIMARY CARE PHYSICIAN: BIANCA CAPONE MD PROCEDURE PERFORMED BY: ISLEA RILEY MD,ANUJ Mathew PRE-OPERATIVE DIAGNOSIS: Screening POST-OPERATIVE DIAGNOSIS: COLON POLYPS, DIVERTICULOSIS, HEMORRHOIDS ESTIMATED BLOOD LOSS (mL): None CONSENT: The benefits, risks, and alternatives to the procedure were discussed and informed consent was obtained from the patient. PREPARATION: EKG, pulse, pulse oximetry and blood pressure were monitored throughout the procedure. PROCEDURE PERFORMED: Colonoscopy QUALITY OF BOWEL PREP: Good MEDICATION(S): Propofol per anesthesia EXTENT OF EXAM: Cecum. PROCEDURE: After adequate IV sedation was obtained, the endoscope was passed with ease through the anus under direct visualization; it was extended to the cecum. Photographs obtained. The scope was withdrawn and the mucosa was carefully examined. The views were good. Scope was retroflexed in the rectum. The patient tolerated the procedure well. The patient was awake, alert, and oriented before being transferred to the recovery. Findings are noted below. RECTAL EXAM: Small external hemorrhoids ENDOSCOPIC FINDINGS: 1. A polyp was found in the cecum. The polyp was 10 mm in size and sessile. The polyp was resected with cold snare and retrieved 2. 3 polyps were found in the ascending colon. The polyps were 3-6 mm in size and sessile. The polyps were removed with a cold snare and retrieved 3. 3 polyps were found in the sigmoid colon. The polyps were 4-6 mm in size and sessile. The polyps were removed with cold snare and retrieved 4. Several diverticula were seen in the sigmoid colon 5. External hemorrhoids seen on retroflexion COMPLICATIONS: None. IMAGING: See photo documentation. IMPRESSION(S): 1. A total of 7 colon polyps resected and retrieved, including a 1 cm polyp in the cecum 2. Sigmoid diverticulosis 3. External hemorrhoids RECOMMENDATION(S): 1. Follow up with PCP. 2. Continue home medications. 3. Resume previous diet. 4. Do not drive, consume alcohol, make any important decisions, or operate heavy machinery for the next 24 hours. 5. Repeat colonoscopy in 3 years for ongoing surveillance Specimen for this procedure? Y Specimen(s): Cecum POLYP Ascending colon POLYPS X3 Sigmoid POLYPS X3 DICT: 10/02/19 0832 ANUJ RILEY MD RPT ID: [id number] Electronically Signed By: ANUJ RILEY MD 10/02/19 0834 Normal [facility] SURGICAL PATHOLOGYon 019 SURGICAL PATHOLOGY RUN DATE: 10/03/19 [facility] LIVE SYSTEM PAGE 1 RUN TIME: 1516 Specimen Inquiry RUN USER: INTERFACE PATIENT: VIVEK WASHBURN LOC: DARCIE [place] #: [id number] AGE/SX: 64/M ROOM: RE10/02/[address]: ROSEMARY HUERTAS,ANUJ Mathew : 59 BED: DIS: STATUS: [facility] CL TLOC: SPEC #: [id number] RECD: 10/02/19 [facility] #: [id number] JULIETTE: 10/02/19- SUBM DR: ANUJ RILEY MD ENTERED: 10/02/19 SP TYPE: SURGICAL OTHR DR: JACKY HUERTAS,BIANCA ORDERED: 00772/3, N/C GROSS DESCRIPTION The specimen is received in formalin in three parts: 1. Part one is designated cecum polyp, cold snare, are multiple salcedo soft tissue fragments ranging in size from 0.3 up to 0.7 cm in greatest dimension. The smaller fragments are submitted intact all in cassette 1A. The largest fragment is inked entirely in blue, bisected, and is entirely submitted in cassette 1A. 2. Part two is designated ascending colon polyps, cold snare, are multiple salcedo soft tissue fragments, 0.3 to 0.6 cm, all in cassette 2A. 3. Part three is designated sigmoid colon polyps, cold snare, are five salcedo soft tissue fragments, 0.2 to 0.6 cm, all in cassette 3A. MICROSCOPIC DIAGNOSIS 1. Cecal polyp, cold snare: - FRAGMENTS OF TUBULAR ADENOMA. - SEPARATE FRAGMENTS OF UNREMARKABLE COLONIC MUCOSA. 2. Ascending colon polyps x3, cold snare: - FRAGMENTS OF TUBULAR ADENOMA. 3. Sigmoid colon polyps, cold snare: - TUBULAR ADENOMAS X2. OPERATION COLONOSCOPY. POST OPERATIVE DIAGNOSIS Colon polyps, diverticulosis, hemorrhoids. CONTINUED ON NEXT PAGE RUN DATE: 10/03/19 [facility] LIVE SYSTEM PAGE 2 RUN TIME: 1516 Specimen Inquiry RUN USER: INTERFACE SPEC #: [id number] PATIENT: VIVEK WASHBURN #[id number] (Continued) PREOPERATIVE DIAGNOSIS Screening. Signed Electronically Signed RONNELL MAX MD 10/03/19 1516 END OF REPORT Normal [facility] FREE T4 THYROXINEon 06-27-20 19 FREE T4 THYROXINE 0.82 NG/DL Low 0.89-1.76 [facility] Comment on above: Performed By: #### F T4, TSH #### [facility] [address] [place] [address] HEPATITIS C ANTIBODY (USPTF) on 06-27-2019 HEP C AB NONREACTIVE Normal NONREACTIVE [facility] Comment on above: Performed By: #### H EPC(USP) #### [facility] [address] [place] [address] HGB A1Con 06-27-2019 HbA1c (Bld) [Mass fraction] 212 mg/dL Normal [facility] Comment on above: Performed By: #### A 1C #### [facility] [address] [place] [address] HbA1c (Bld) [Mass fraction] 9.0 % High 4.1-5.6 [facility] Comment on above: Result Comment: REFERENCE RANGE A1C NORMAL= 4.1 TO 5.6 PREDIABETIC RANGE = 5.7 TO 6.4 DIABETIC RANGE = >= 6.5 Performed By: #### A 1C #### [facility] [address] [place] [address] THYROID STIMULATING HORMOon 06-27-2019 TSH Qn 4.6 uIU/mL Normal 0.4-5.5 [facility] Comment on above: Performed By: #### F T4, TSH #### [facility] [address] [place] [address] FREE T4 THYROXINEon 04-03-20 19 FREE T4 THYROXINE 0.82 NG/DL Low 0.89-1.76 [facility] Comment on above: Order Comment: PATIE NT FASTING LATESHA 04/03/19 102 Performed By: #### F T4, TSH #### [facility] [address] [place] [address] LIPID CARE PANELon 9 Cholesterol [Mass/Vol] 93.1 mg/dL Normal < 200 [facility] Comment on above: Order Comment: PATIE NT FASTING LATESHA 04/03/19 102 Result Comment: THE NATIONAL CHOLESTEROL EDUCATION PROGRAM HAS PUBLISHED REFERENCE CHOLESTEROL VALUES FOR CARDIOVASCULAR RISK TO BE: DESIRABLE LESS THAN 200 mg/dL BORDERLINE HIGH 200-239 mg/dL HIGH GREATER THAN EQUAL TO 240 mg/dL Performed By: #### C AREP #### [facility] [address] [place] [address] Cholesterol in LDL [Mass/Vol] 35.0 mg/dL Normal 10-130 [facility] Comment on above: Order Comment: PATIE NT FASTING LATESHA 04/03/19 1020 Result Comment: RISK LEVELS < 130 MG/DL DESIRABLE LDL 130-159 MG/DL BORDERLINE HIGH RISK LDL >OR= 160 MG/DL HIGH RISK LDL Performed By: #### C AREP #### [facility] [address] [place] [address] Cholesterol.total/Adrianna sterol in HDL [Mass ratio] 3.0 {ratio} Normal 0.1-4.0 [facility] Comment on above: Order Comment: PATIE NT FASTING LATESHA 04/03/19 1020 Performed By: #### C AREP #### [facility] [address] [place] [address] HDL DIRECT CHOLESTEROL 31 MG/DL Normal > 60 [facility] Comment on above: Order Comment: PATIE NT FASTING LATESHA 04/03/19 102 Result Comment: CARDIOVASCULAR RISK: LOW - GREATER THAN OR EQUAL TO 60 mg/dL CARDIOVASCULAR RISK: HIGH - LESS THAN 40 mg/dL Performed By: #### C AREP #### [facility] [address] [place] [address] Triglyceride [Mass/Vol] 135.2 mg/dL Normal < 150 [facility] Comment on above: Order Comment: PATIE NT FASTING LATESHA 04/03/19 102 Result Comment: NORMAL LESS THAN 150 MG/DL BORDERLINE OR HIGH 150-199 MG/DL HIGH 200-499 MG/DL VERY HIGH GREATER THAN OR EQUAL TO 500 MG/DL Performed By: #### C AREP #### [facility] [address] [place] [address] THYROID STIMULATING HORMOon 04-03-2019 TSH Qn 4.3 uIU/mL Normal 0.4-5.5 [facility] Comment on above: Order Comment: PATIE NT FASTING LATESHA 04/03/19 1020 Performed By: #### F T4, TSH #### [facility] [address] [place] [address] LDL DIRECTon 02-01-2018 01502-6 Normal [facility] Comment on above: Performed By: #### 5 7698-3 ####[place] [address], [place] [address]Ibgmaay Director - Monisha Farley [id number] for [facility], [place] [address]#### [phone] ####Performed for [place] [address], [place] [address] LDL Cholesterol 98 mg/dL Normal 0-99 [facility] Comment on above: Performed By: #### 5 7698-3 ####[place] [address], [place] [address]Mvedrcf Director - Monisha Farley [id number] for [place] [address], [place] [address]#### 75526-4 ####Performed for [place] [address], [place] [address] A1Con 01-31-2018 Glucose mass conc 174 mg/dL High 68-125 [facility] Comment on above: Performed By: #### 1 7855-8 ####[place] [address], [place] [address]Eaxkmvg Director - Monisha Farley [id number] Hemoglobin A1c/Hemoglobin.total mass fraction (Bld) 7.7 %A1C High 4.2-6.3 [facility] Comment on above: Performed By: #### 1 7855-8 ####[facility], [place] [address]Bqnqlzs Director - Monisha Farley [id number] Hemoglobin A1c/Hemoglobin.total mass fraction (Bld) A1C INTERPRETATION %A1c (NGSP) Interpretation 4.0-6.0 Non-Diabetic Range >6.5 Action Suggested The eAG (estimated average glucose) is an estimation of one?s average blood glucose level, calculated based on A1C test results, reported using the same units (mg/dL) seen on blood glucose meters. Normal [facility] Comment on above: Performed By: #### 1 7855-8 ####[facility] Director - [facility] [id number] CREATININEon 01-31-2018 Creatinine 0.72 mg/dL Normal 0.67-1.17 [facility] Comment on above: Performed By: #### 2 160-0 ####[facility] Director - [facility] [id number] eGFR (MDRD) mL/min/{1.73_m2} Normal >=59 [facility] Comment on above: Performed By: #### 2 160-0 ####[facility] - [facility] [id number] eGFR (non-black) GLOMERULAR FILTRATION RATE INTERPRETATION~The eGFR is calculated using the MDRD equation.~This equation has been validated in patients with chronic kidney disease;~however, it underestimates the GFR in healthy patients with GFR's over 60 mL/min.~The equation is not valid in children under the age of 18.~NOTE: Criteria for Chronic Kidney Disease:~ ~1. Kidney damage for at least three months, as defined~by structural or functional abnormalities of the kidney,~with or without decreased glomerular filtration rate, manifested by either:~* Pathological abnormalities or~* Markers of Kidney damage, including abnormalities in~the composition of the blood or urine or abnormalities in imaging tests.~ ~2. GFR <60 mL/min/1.73 m squared for at least three months, with or without kidney damage.~ Normal [facility] Comment on above: Performed By: #### 2 160-0 ####[facility] - [facility] [id number] LIPID PANELon 01-31-2018 Cholesterol 204 mg/dL High <=200 [facility] Comment on above: Performed By: #### 5 7698-3 ####[facility], [place] [address]Gqhedhj Director - Monisha Farley [id number] for [place] [address], [place] [address]#### 87289-1 ####Performed for [place] [address], [place] [address] Cholesterol CHOLESTEROL INTERPRETATION Desirable <200 Borderline High 200-239 High >240 Normal [facility] Comment on above: Performed By: #### 5 7698-3 ####[place] [address], [place] [address]Ywrsjhp Director - Monisha Farley [id number] for [place] [address], [place] [address]#### 01843-5 ####Performed for [place] [address], [place] [address] Cholesterol to HDL Ratio 5.8 {ratio} Normal [facility] Comment on above: Performed By: #### 5 7698-3 ####[place] [address], [place] [address]Wvkldqq Director - Monisha Farley [id number] for [place] [address], [place] [address]#### 50489-5 ####Performed for [place] [address], [place] [address] HDL Cholesterol 35 mg/dL Low 40-59 [facility] Comment on above: Performed By: #### 5 7698-3 ####[place] [address], [place] [address]Xbjhsyk Director - Monisha Farley [id number] for [place] [address], [place] [address]#### 78408-6 ####Performed for [place] [address], [place] [address] HLIPID ATEROSCLEROSIS RISK FACTORS FOR LDL, HDL, AND CHOLESTEROL RISK FACTOR SEX LDL/HDL CHOL/HDL 1/2 Average M 1.00 3.43 F 1.47 3.27 Average M 3.55 4.97 F 3.22 4.44 2X Average M 6.25 9.55 F 5.03 7.05 3X Average M 7.99 23.39 F 6.14 11.04 Normal [facility] Comment on above: Performed By: #### 5 7698-3 ####[place] [address] [address]Medical Director - Monisha [facility]es[facility] [id number] for [place] [address] [place] [address]#### 30876-3 ####Performed for [place] [address] [place] [address] HTRIG TRIGLYCERIDES INTERPRETATION Normal <150 Borderline High 150-199 High 200-499 Very High >500 Normal [facility] Comment on above: Performed By: #### 5 7698-3 ####[place] [address] Director - [facility] Dev[id number] for [place] [address] [place] [address]#### 70086-5 ####Performed for [place] [address] [place] [address] LDL Cholesterol Normal 5-100 [facility] Comment on above: Performed By: #### 5 7698-3 ####[place] [address] Director - [place] [id number] for [place] [address] [place] [address]#### 31944-6 ####Performed for [place] [address] [place] [address] LDL Cholesterol LDL INTERPRETATION Desirable <100 Near Optimal 100-129 Borderline High 130-159 High 160-190 Very High >190 Normal [facility] Comment on above: Performed By: #### 5 7698-3 ####[place] [address], [place] [address]Zjacpnh Director - [facility] [id number] for [place] [address] [place] [address]#### 86842-3 ####Performed for [place] [address] [place] [address] LDL to HDL Ratio Normal [facility] Comment on above: Performed By: #### 5 7698-3 ####[place] [address], [place] [address]Cqiurzi Director - [facility] [id number] for [place] [address] [address] [place] [address]#### 35764-4 ####Performed for [place] [address] [place] [address] Triglyceride 486 mg/dL High <=150 [facility] Comment on above: Result Comment: Trig lyceride result >400. LDL and LDL/HDL will not be calculated. A direct LDL will be performed instead. Performed By: #### 5 7698-3 ####[place] [address], [place] [address]Mqjgkcs Director - [facility] [id number] for [place] [address] [place] [address]#### 05495-4 ####Performed for [place] [address], [place] [address] PSA SCREENon 01-31-2018 PSA 7.68 ng/mL High <=4.00 [facility] Comment on above: Performed By: #### 2 857-1 ####[place] [address], [place] [address]Znydhir Director - [facility] [id number] CULTURE ROUTINEon 05-05-2017 INR Coag RelTime (Bld) Acinetobacter baumanniiORGANISM: Isolate 1 ANTIBIOTIC INTERP MICAmpicillin R >=32 Ampicillin/Sulbacta m S <=2 Piperacillin/Tazoba ctam S <=4 Cefazolin R >=64 Cefoxitin R >=64 Ceftazidime I 16 Ceftriaxone I 16 Meropenem S 0.5 Gentamicin S <=1 Ciprofloxacin S <=0.25 Levofloxacin S <=0.12 Trimethoprim/Sulfam ethoxazole S <=20 Normal [facility] Comment on above: Performed By: #### 6 32-0 ####[facility], [place] [address]Uvxllag Director - Monisha aFrley [id number] for [facility] [place] [address] Vital Signs Date Time Vital Sign Value Performing Clinician Facility 05-12-2025 10:40-0400 Body height 185.[address] Parish Henderson MD Work Phone: [facility] 05-12-2025 10:40-0400 Body mass index (BMI) [Ratio] 31.9 kg/m2 Dr. Parish Henderson MD Work Phone: [facility] 05-12-2025 10:40-0400 Body temperature 97.9 [degF] Dr. Parish Henderson MD Work Phone: [facility] 05-12-2025 10:40-0400 Body weight 109.[address] Parish Henderson MD Work Phone: [facility] 05-12-2025 10:40-0400 Diastolic blood pressure 76 mm[Hg] Dr. Parish Henderson MD Work Phone: [facility] 05-12-2025 10:40-0400 Heart rate 67 /min Dr. Parish Henderson MD Work Phone: [facility] 05-12-2025 10:40-0400 Respiratory rate 18 /min Dr. Parish Henderson MD Work Phone: [facility] 05-12-2025 10:40-0400 SaO2% (BldA) [Mass fraction] 95 % Dr. Parish Hnederson MD Work Phone: [facility] 05-12-2025 10:40-0400 Systolic blood pressure 134 mm[Hg] Dr. Parish Henderson MD Work Phone: [facility] 08-16-2022 09:45-0400 Body height 188 cm Bianca Capone MD Work Phone: [facility] 08-16-2022 09:45-0400 Body mass index (BMI) [Ratio] 32.66 kg/m2 Bianca Capone MD Work Phone: [facility] 08-16-2022 09:45-0400 Body temperature 98.2 [degF] Bianca Capone MD Work Phone: [facility] 08-16-2022 09:45-0400 Body weight 115.39 kg Bianca Capone MD Work Phone: [facility] 08-16-2022 09:45-0400 Diastolic blood pressure 70 mm[Hg] Bianca Capone MD Work Phone: [facility] 08-16-2022 09:45-0400 Heart rate 70 /min Bianca Capone MD Work Phone: [facility] 08-16-2022 09:45-0400 SaO2% (BldA) [Mass fraction] 98 % Bianca Capone MD Work Phone: [facility] 08-16-2022 09:45-0400 Systolic blood pressure 124 mm[Hg] Bianca Capone MD Work Phone: [facility] 03-04-2022 09:20-0400 Body height 188 cm Bianca Capone MD Work Phone: [facility] 03-04-2022 09:20-0400 Body mass index (BMI) [Ratio] 32.56 kg/m2 Bianca Capone MD Work Phone: [facility] 03-04-2022 09:20-0400 Body temperature 97.81 [degF] Bianca Capone MD Work Phone: [facility] [employer] [facility] 03-04-2022 09:20-0400 Body weight 115.03 kg Bianca Capone MD Work Phone: [facility] [employer] [facility] 03-04-2022 09:20-0400 Diastolic blood pressure 70 mm[Hg] Bianca Capone MD Work Phone: [facility] [employer] [facility] 03-04-2022 09:20-0400 Heart rate 69 /min Bianca Capone MD Work Phone: [facility] [employer] [facility] 03-04-2022 09:20-0400 SaO2% (BldA) [Mass fraction] 98 % Bianca Capone MD Work Phone: [facility] 03-04-2022 09:20-0400 Systolic blood pressure 124 mm[Hg] Bianca Capone MD Work Phone: [facility] 10-28-2021 10:16-0500 Body mass index (BMI) [Ratio] 33.29 kg/m2 Bianca Capone MD Work Phone: [facility] 10-28-2021 10:16-0500 Body temperature 98.01 [degF] Bianca Capone MD Work Phone: [facility] 10-28-2021 10:16-0500 Body weight 119.2 kg Bianca Capone MD Work Phone: [facility] 10-28-2021 10:16-0500 Diastolic blood pressure 72 mm[Hg] Bianca Capone MD Work Phone: [facility] 10-28-2021 10:16-0500 Heart rate 65 /min Bianca Capone MD Work Phone: [facility] 10-28-2021 10:16-0500 SaO2% (BldA) [Mass fraction] 98 % Bianca Capone MD Work Phone: [facility] 10-28-2021 10:16-0500 Systolic blood pressure 128 mm[Hg] Bianca Capone MD Work Phone: [facility] 04-27-2021 14:51-0400 Body mass index (BMI) [Ratio] 35.7 kg/m2 Bianca Capone MD Work Phone: [facility] 04-27-2021 14:51-0400 Body temperature 98.6 [degF] Bianca Capone MD Work Phone: [facility] 04-27-2021 14:51-0400 Body weight 127.82 kg Bianca Capone MD Work Phone: [facility] 04-27-2021 14:51-0400 Diastolic blood pressure 76 mm[Hg] Bianca Capone MD Work Phone: [facility] 04-27-2021 14:51-0400 Heart rate 70 /min Bianca Capone MD Work Phone: [facility] 04-27-2021 14:51-0400 SaO2% (BldA) [Mass fraction] 97 % Bianca Capone MD Work Phone: [facility] 04-27-2021 14:51-0400 Systolic blood pressure 138 mm[Hg] Bianca Capone MD Work Phone: [facility] 02-23-2021 11:00-0400 Diastolic blood pressure 75 mm[Hg] Bianca Capone MD Work Phone: [facility] 02-23-2021 11:00-0400 Systolic blood pressure 134 mm[Hg] Bianca Capone MD Work Phone: [facility] 02-23-2021 10:13-0400 Body mass index (BMI) [Ratio] 35.87 kg/m2 Bianca Capone MD Work Phone: [facility] 02-23-2021 10:13-0400 Body temperature 98.29 [degF] Bianca Capone MD Work Phone: [facility] 02-23-2021 10:13-0400 Body weight 128.46 kg Bianca Capone MD Work Phone: [facility] 02-23-2021 10:13-0400 Heart rate 57 /min Bianca Capone MD Work Phone: [facility] 02-23-2021 10:13-0400 SaO2% (BldA) [Mass fraction] 97 % Bianca Capone MD Work Phone: [facility] Encounters Encounter Date Encounter Type Care Provider Facility Start: 07-09-2025 ambulatory [facility] Facility:[facility] Start: 05-12-2025 End: 05-12-[address] Parish Henderson MD Work Phone: -Radiology [facility] Start: 05-12-2025 End: 05-12-[address] Pilar Cole MD -Radiology [facility] Work Phone: Start: 05-12-2025 End: 05-12-[address] Pilar Cole MD -[facility] Work Phone: Start: 05-12-2025 End: 05-12-[address] Parish Henderson MD Work Phone: -[facility] Start: 05-12-2025 End: 05-12-2025 ambulatory Pilar Cole Facility:[facility] Start: 05-06-2025 End: 05-06-2025 [facility] Start: 03-12-2025 End: 03-12-2025 ambulatory [facility] Start: 09-18-2024 End: 09-18-2024 ambulatory [facility] Start: 08-16-2022 ambulatory BIANCA CAPONE [facility] Start: 08-16-2022 End: 08-16-2022 Office outpatient visit 25 minutes Bianca Capone MD Work Phone: [facility] Internal Medicine Comment on above: Immunization due (Pr imary Dx); Type 2 diabetes mellitus with diabetic mononeuropathy, with long-term current use of insulin (CMS/HCC); Mixed hyperlipidemia; Polyp of colon, unspecified part of colon, unspecified type Start: 03-04-2022 End: 03-04-2022 Office outpatient visit 25 minutes Bianca Capone MD Work Phone: [facility] Internal Medicine Comment on above: Type 2 diabetes sherin itus with diabetic mononeuropathy, with long-term current use of insulin (CMS/HCC) (Primary Dx); Hypothyroidism, unspecified type; High prostate specific antigen (PSA) Start: 10-28-2021 End: 10-28-2021 Office outpatient visit 25 minutes Bianca Capone MD Work Phone: [facility] Medicine Comment on above: Flu (Primary Dx); Mixed hyperlipidemia; Type 2 diabetes mellitus with diabetic mononeuropathy, with long-term current use of insulin (CMS/HCC); Pure hyperglyceridemia Start: 04-27-2021 End: 04-27-2021 Office outpatient visit 25 minutes Bianca Capone MD Work Phone: [facility] Comment on above: Mixed hyperlipidemia (Primary Dx); Type 2 diabetes mellitus with diabetic mononeuropathy, with long-term current use of insulin (CMS/HCC); Immunization due; High prostate specific antigen (PSA) Start: 02-23-2021 End: 02-23-2021 Office outpatient visit 25 minutes Bianca Capone MD Work Phone: [facility] Internal Medicine Comment on above: Hypothyroidism, unsp ecified type (Primary Dx); Type 2 diabetes mellitus with diabetic mononeuropathy, with long-term current use of insulin (CMS/HCC); Pure hyperglyceridemia; High prostate specific antigen (PSA); Type 2 diabetes mellitus with diabetic mononeuropathy (CMS/HCC) Start: 01-31-2018 End: 02-01-2018 Ambulatory LAZ CHEUNG Facility:[facility] Start: 05-03-2017 End: 05-04-2017 Ambulatory PILAR HI Facility:[facility] Procedures Date Procedure Procedure Detail Performing Clinician Start: 05-12-2025 Plain X-ray of finger Mitch Henderson MD Work Phone: Start: 08-16-2022 MONOFILAMENT EXAM Bianca Capone MD Work Phone: Start: 03-04-2022 Urine albumin quantitative Bianca Capone MD Work Phone: Start: 03-04-2022 Hemoglobin glycosyla abril a1c Bianca Capone MD Work Phone: Start: 03-04-2022 PSA DIAGNOSTIC Bianca gordon MD Work Phone: Start: 03-04-2022 Thyrotropin [Units/v olume] in Serum or Plasma Bianca Capone MD Work Phone: Start: 10-28-2021 MONOFILAMENT EXAM Bianca Capone MD Work Phone: Start: 10-28-2021 Lipid 1996 panel - S kaitlynn or Plasma Bianca Capone MD Work Phone: Start: 02-23-2021 Basic metabolic pane l calcium total Bianca Capone MD Work Phone: Start: 02-23-2021 Hepatic function panel Bianca Capone MD Work Phone: Start: 02-23-2021 Urine albumin quantitative Bianca Capone MD Work Phone: Start: 02-23-2021 MONOFILAMENT EXAM Bianca Capone MD Work Phone: Start: 02-23-2021 Lipid 1996 panel - S kaitlynn or Plasma Bianca Capone MD Work Phone: Start: 02-23-2021 Thyrotropin [Units/v olume] in Serum or Plasma Bianca Capone MD Work Phone: Start: 10-02-2019 Colonoscopy Bianca aguilar MD Work Phone: Plan of Treatment Date Care Activity Detail Author Start: 10-16-2024 DTaP/Tdap/Td Vaccine s (2 - Td or Tdap) DTaP/Tdap/Td Vaccines (2 - Td or Tdap) [facility] Start: 10-16-2024 DTaP/Tdap/Td Vaccine s (2 - Td) DTaP/Tdap/Td Vaccines (2 - Td) [facility] Start: 12-25-2023 Pneumococcal Vaccine : 65+ Years (1 of 1 - PPSV23) Pneumococcal Vaccine: 65+ Years (1 of 1 - PPSV23) [facility] Start: 12-25-2023 Pneumococcal Vaccine : Pediatrics (0 to 5 Years) and At-Risk Patients (6 to 64 Years) (2 of 2 - PPSV23) Pneumococcal Vaccine: Pediatrics (0 to 5 Years) and At-Risk Patients (6 to 64 Years) (2 of 2 - PPSV23) [facility] Start: 08-16-2023 Diabetic foot examination Diabetes: Foot Exam [facility] Start: 04-05-2023 Ophthalmic examinati on and evaluation Diabetes: Retinopathy Screening [facility] Start: 03-22-2023 End: 03-22-2023 Patient encounter procedure 03/22/2023 Office Visit Internal Medicine Bianca Capone MD [address] [place] [phone] [facility] Start: 03-04-2023 Thyroid stimulating hormone measurement TSH Level [facility] Start: 03-04-2023 Urine screening for protein Diabetes: Urine Protein Screening [facility] Start: 10-28-2022 Diabetic foot examination Diabetes: Foot Exam [facility] Start: 10-28-2022 Lipid panel Lipid Panel [facility] Start: 10-02-2022 Screening for malignant neoplasm of colon [facility] Comment on above: Postponed from 08/13 (Other Medical Reasons) Start: 09-15-2022 End: 08-16-2023 Colonoscopy study Colonoscopy Endoscopy Routine Polyp of colon, unspecified part of colon, unspecified type Expected: 09/15/2022 (Approximate), Expires: 08/16/2023 [facility] Comment on above: Expected: 09/15/2022 (Approximate), Expires: 08/16/2023 Start: 09-04-2022 Hemoglobin A1c measurement Diabetes: Hemoglobin A1C [facility] Start: 08-16-2022 End: 08-16-2022 Patient encounter procedure 08/16/2022 Office Visit Internal Medicine Bianca Capone MD [address] [place] [phone] [facility] Start: 04-27-2022 Hemoglobin A1c measurement Diabetes: Hemoglobin A1C [facility] Start: 03-04-2022 End: 03-04-2022 Patient encounter procedure 03/04/2022 Office Visit Internal Medicine Bianca Capone MD [address] [place] [phone] [facility] Internal [facility] Start: 02-23-2022 Diabetic foot examination Diabetes: Foot Exam [facility] Start: 02-23-2022 Lipid panel Lipid Panel [facility] Start: 02-23-2022 Thyroid stimulating hormone measurement TSH Level [facility] Start: 02-23-2022 Urine screening for protein Diabetes: Urine Protein Screening [facility] Comment on above: Postponed from 08/13 (Other Medical Reasons) Start: 02-15-2022 COVID-19 Vaccine (3 - Booster for Moderna series) COVID-19 Vaccine (3 - Booster for Moderna series) [facility] Start: 01-16-2022 COVID-19 Vaccine (3 - Booster for Moderna series) COVID-19 Vaccine (3 - Booster for Moderna series) [facility] Start: 09-15-2021 Hepatitis B Vaccines (1 of 3 - Risk 3-dose series) Hepatitis B Vaccines (1 of 3 - Risk 3-dose series) [facility] Comment on above: Postponed from 08/13 (Other Medical Reasons) Start: 08-26-2021 Hemoglobin A1c measurement Diabetes: Hemoglobin A1C [facility] Start: 08-26-2021 End: 08-26-2021 Patient encounter procedure 08/26/2021 Office Visit Internal Medicine Bianca Capone MD [address] [place] [phone] [facility] Start: 06-16-2021 Influenza vaccination Influenza Vacc ine (#1) [facility] Start: 04-27-2021 End: 04-27-2021 Patient encounter procedure 04/27/2021 Office Visit Internal Medicine Bianca Capone MD [address] [place] [phone] [facility] Start: 03-23-2021 COVID-19 Vaccine (2 of 2 - Moderna series) COVID-19 Vaccine (2 of 2 - Moderna series) [facility] Start: 03-18-2021 Lipid panel Lipid Panel [facility] Start: 03-18-2021 Thyroid stimulating hormone measurement TSH Level [facility] Start: 09-17-2020 Hemoglobin A1c measurement Diabetes: Hemoglobin A1C [facility] Start: 2007 Zoster Vaccines (1 o f 2) Zoster Vaccines (1 of 2) [facility] Start: 1976 Hepatitis B Vaccines (1 of 3 - Risk 3-dose series) Hepatitis B Vaccines (1 of 3 - Risk 3-dose series) [facility] Start: 1967 Ophthalmic examinati on and evaluation Diabetes: Retinopathy Screening [facility] Start: 1967 Preventive dental service Diabetes: Dental Exam [facility] Start: 1957 Annual wellness visit Medicare Initial Physical (IPPE) [facility] Start: 1957 HIV screening HIV Screening [facility] Start: 1955 Screening for malignant neoplasm of colon [facility] Hemoglobin A1c/Hemoglobin.total in Blood Hemoglobin A1c Lab Routine Type 2 diabetes mellitus with diabetic mononeuropathy, with long-term current use of insulin ([facility]/HCC) Ordered: 10/28/2021 [facility] Work Phone: Comment on above: Ordered: 10/28/2021 Hemoglobin A1c/Hemoglobin.total in Blood Hemoglobin A1c Lab Routine Type 2 diabetes mellitus with diabetic mononeuropathy, with long-term current use of insulin ([facility]) Ordered: 08/16/2022 [facility] Work Phone: Comment on above: Ordered: 08/16/2022 Lipid 1996 panel - Serum or Plasma Lipid panel Lab Routine Mixed hyperlipidemia Pure hyperglyceridemia Ordered: 10/28/2021 [facility] Comment on above: Ordered: 10/28/2021 Lipid 1996 panel - Serum or Plasma Lipid panel Lab Routine Mixed hyperlipidemia Ordered: 08/16/2022 [facility] Comment on above: Ordered: 08/16/2022 XR Finger GE 2 Views [facility] Immunizations Immunization Date Immunization Notes Care Provider Fa lupillo 08-16-2022 FLU VACCINE (IIV4) H IGH DOSE PRESERVATIVE FREE Bianca Capone MD Work Phone: [facility] 08-16-2022 PNEUMO VAX CONJUGATE 20-VALENT Bianca Capone MD Work Phone: [facility] 10-28-2021 influenza, injectabl e, quadrivalent, preservative free Bianca Capone MD Work Phone: [facility] 08-18-2021 Moderna SARS-COV-2 Vaccination Bianca Capone MD Work Phone: [facility] 02-23-2021 Moderna SARS-COV-2 Vaccination Bianca Capone MD Work Phone: [facility] 08-24-2020 influenza, seasonal, injectable, preservative free Bianca Capone MD Work Phone: [facility] 08-24-2020 influenza virus vacc ine, unspecified formulation Bianca Capone MD Work Phone: [facility] 07-31-2019 influenza, seasonal, injectable, preservative free Bianca Capone MD Work Phone: [facility] 12-24-2018 influenza, injectabl e, quadrivalent, preservative free Bianca Capone MD Work Phone: [facility] 12-24-2018 pneumococcal polysaccharide vaccine, 23 valent Bianca Capone MD Work Phone: [facility] 10-16-2015 influenza, seasonal, injectable Bianca Capone MD Work Phone: [facility] 10-16-2014 TD(adult) unspecifie d formulation Bianca Capone MD Work Phone: [facility] Payers Date Payer Category Payer Self-pay 2020 Medicare [employer] MEDICARE ADVANTAGE [facility] ADVANTAGE [id number] 2020-Present [address] [place] [address] [id number] 2020 Medicare [employer] MEDICARE ADVANTAGE [facility] ADVANTAGE [id number] 2020-Present [address] [place] [address] [id number] 2020 Medicare [id number] 1955 Unknown [id number] 1955 Unknown [id number] 1955 Unknown [id number] Unknown [id number] Unknown [id number] Unknown [id number] Unknown [id number] Social History Date Type Detail Facility Start: 02-23-2021 End: 05-12-2025 Tobacco smoking status NHIS Never smoker [facility] Start: 02-23-2021 Tobacco use and exposure Never used [facility] Start: 02-23-2021 End: 08-16-2022 Alcohol intake Ex-drinker (finding) [facility] Start: 1955 Sex Assigned At Not on file L [facility] Start: 08-06-2022 End: 08-16-2022 Exposure to SARS-CoV-2 (event) Not sure [facility] Start: 02-23-2021 Tobacco use and exposure Former user [facility] End: 10-16-2011 History of tobacco use Chews Tobacco [facility] Start: 10-28-2021 History SDOH Alcohol Comment Occassional [facility] Start: 03-04-2022 History SDOH Alcohol Comment Rarely [facility] Start: 1955 Sex Assigned At Male [facility] Medical Equipment Procedure Code Equipment Code Equipment Origin al Text Equipment Identifier Dates USE TO CHECK BLO OD SUGAR ONCE DAILY [id number] Start: 11-16-2020 End: 03-04-2022 Use to inject 1- 4 times daily as directed. [id number] Start: 02-23-2021 End: 02-23-2022 Use to check blo od sugar daily [id number] Start: 02-10-2020 USE TO CHECK BLO OD SUGAR DAILY [id number] Start: 07-05-2021 Clinical Notes 02-23-2021 to 05-14-2025 Note Date & Type Note Facility 05-14-2025 Radiology Diagnostic study note [facility] Imaging Services [address] [place], [place] [id number] Finger(s) Min 2 Views MR#: [id number] Acct: [id number] Name: VIVEK WASHBURN Jr. Rep #: [id number] : 1955 M 69 From: She Cancino MD PCP: Dr. Parish Henderson MD Status: R EG CLI Study:Finger(s) Min 2 Views Date of Exam: 05/12/25 Exam# [id number] Ordering Dr: Anjana Cole MD PROCEDURE: FINGER(S) MIN 2 VIEWS 05/12/2025 REASON FOR EXAM: CYST ON RIGHT INDEX TECHNIQUE: FINGER(S) MIN 2 VIEWS COMPARISON: No FINDINGS: Mild interphalangeal joint osteoarthritis. Overgrowth of the middle phalangeal head, best seen on the lateral view. No acute bone pathology. RAD/Finger(s) Min 2 Views IMPRESSION: Overgrowth of the middle phalangeal head which may represent a palpable lesion. Reading Location: [place] [address] CC: Dr. Pilar Cole MD; Dr. Parish Henderson MD ~ Livestock Inspector: Signed [facility] 05-12-2025 Evaluation note Diagnosis Onset Date Resolution Mucous cyst of finger acute Apr 9:51am [facility] Work Phone: 1(440) 455-751711-01-2022 History of Present illness Narrative* Noni May RN - 08/16/2022 10:00 AM EDT Diabetic foot exam: Left: Pulses Dorsalis Pedis: present Reflexes 2+ Vibratory sensation absent Proprioception normal Sharp/dull discrimination absent Filament test absent Right: Pulses Dorsalis Pedis: present Reflexes 2+ Vibratory sensation absent Proprioception normal Sharp/dull discrimination absent Filament test absent Callous formation: No * Bianca Capone MD - 08/16/2022 10:00 AM EDT The patient comes in today for a regularly scheduled appointment. The patient's recent office visit, labs, and x-rays were reviewed prior to examining the patient. The patient's current medication list was reviewed with the patient. I have reviewed the past, family and social histories as recorded by the clinical staff, and I verify the documentation is accurate. CHIEF COMPLAINT: The patient is a pleasant 67 y.o. male who presents for follow up of: Diabetes type 2, hyperlipidemia, goal LDL less than 70, preventative care. Problem based HPI and A/P: 1. Diabetes type 2, mixed hyperlipidemia, goal LDL <70: States FBS has been averaging around 170, depending on what he eats. States if he does not eat as healthy, or if he eats clementines, he will notice higher blood sugars in the morning. States he tries to eat healthy overall, but does consume cheese. Compliant with and tolerating metformin, 1000 mg twice daily, Januvia 100 mg daily, Trulicity, 3 mgweekly. He does not report any other new symptoms related to the above. Lab Results Component Value Date HGBA1C 8.3 (H) 03/04/2022 HGBA1C 8.4 (H) 10/28/2021 HGBA1C 8.4 (H) 02/23/2021 Lab Results Component Value Date MICROALBCREA 10 03/04/2022 LDLDIRECT 51.8 02/23/2021 LDLCALC 45 10/28/2021 Lab Results Component Value Date BUN 11 02/23/2021 CREATININE 0.6 (L) 02/23/2021 EGFR 107.0 02/23/2021 -Patient advised to try getting in at least 8-10 servings of whole fruits and vegetables daily. Advised him to try lower sugar fruits such as berries although I do not feel strongly that consuming a couple of clementines is truly problematic. Advised for him to consume around 30 g of lean protein with every meal and strongly advised him to try decreasing his intake of fat, especially through cheese. -He has done very well off of insulin and it would be ideal to keep him off of this for now. -Check A1c, monofilament, lipid panel today. -Continue current management for now. HEALTH MAINTENANCE: History of colon polyps: Patient had 7 colon polyps on his last colonoscopy. Repeat colonoscopy duein September. He continues to deny having any new GI symptoms, bleeding, melena and he has no familyhistory of colon cancer. Referral placed to GI for June. Influenza, Prevnar The patient will return for a follow up in: 6-8 months or as needed Orders: A1c, lipid panel, monofilament ROS: No other symptoms reported other than those noted in HPI Past Surgical History: Procedure Laterality Date AMPUTATION Right 1977 Partial amputation middle finger Family History Problem Relation Name Age of Onset Diabetes Mother Diabetes Father Social History Tobacco Use Smoking status: Never Smoker Smokeless tobacco: Former User Types: Chew Substance Use Topics Alcohol use: Not Currently Comment: Rarely Drug use: Never VITALS: Visit Vitals BP 124/70 (BP Location: Left arm, Patient Position: Sitting) Pulse 70 Temp 36.8 C (98.2 F) (Temporal) Ht 1.88 m (6' 2) Wt 115 kg (254 lb 6.4 oz) SpO2 98% BMI 32.66 kg/m Smoking Status Never Smoker BSA 2.4 m PHYSICAL EXAM: General: No apparent distress, patient appears non-toxic and comfortable HEENT: Atraumatic, normocephalic, PERRLA, EOMI, clear conjunctivae, no conjunctival pallor Respiratory: Clear to auscultation bilaterally, no wheezing, no conversational dyspnea Cardiovascular: Regular rate and rhythm, S1 and S2 normal Abdomen: Nontender, nondistended, normal bowel sounds Musculoskeletal: No new deformities Psych: Normal affect. No significant anxiety or depression. -The above orders/referrals were discussed with the patient and they were agreeable with having these done. -Patient is agreeable with their current medication regimen. -Patient has been made aware to seek emergent medical attention should any of their symptoms persist, change, or worsen in any way, if they are to develop any acute or significant symptoms that are new, or if they are to have any adverse reactions to any of their medications. The patient was comfortable with the above plan. * Noni May RN - 08/16/2022 10:00 AM EDT Pt in office today for regularly scheduled follow up appt No verbalized concerns Fasting today. [facility] History of Present illness Narrative* Noni May RN - 03/04/2022 9:30 AM EDT Left antecubital area cleansed with alcohol wipe. 23G butterfly used to draw blood but unsuccessful. Pt tolerated procedure well. Right antecubital area cleansed with alcohol wipe. 23G butterfly used to draw blood. Successful blood draw. Pt tolerated procedure well. * Bianca Capone MD - 03/04/2022 9:30 AM EDT The patient comes in today for a regularly scheduled appointment. The patient's recent office visit, labs, and x-rays were reviewed prior to examining the patient. The patient's current medication list was reviewed with the patient. I have reviewed the past, family and social histories as recorded by the clinical staff, and I verify the documentation is accurate. CHIEF COMPLAINT: The patient is a pleasant 66 y.o. male who presents for follow up of: Diabetes type 2, LDL goal less than 70, history of elevated PSA. Problem based HPI and A/P: 1. Diabetes type 2, mixed hyperlipidemia, goal LDL <70: Patient is now off of insulin. Tolerating Trulicity, metformin, Januvia without issues. Compliant with atorvastatin. Blood sugars have been in the upper 100s in the morning and low 200s in the evening. He does not report any acute symptoms related to this. Lab Results Component Value Date HGBA1C 8.4 (H) 10/28/2021 HGBA1C 8.4 (H) 02/23/2021 HGBA1C 9.3 (H) 03/18/2020 Lab Results Component Value Date MICROALBCREA 28 02/23/2021 LDLDIRECT 51.8 02/23/2021 LDLCALC 45 10/28/2021 Lab Results Component Value Date BUN 11 02/23/2021 CREATININE 0.6 (L) 02/23/2021 EGFR 107.0 02/23/2021 -Recheck blood work today. -Eventually, if the patient can have an improvement in his A1c, we can consider stopping his Januvia. At some point in the future, we can also consider increasing the Trulicity. He does have a co-payof $200 for this medication monthly, so we will try to hold off on increasing this if possible. -Patient should continue to do their absolute best to maintaining a healthy diet, one that is high in fruits and vegetables, low in processed foods, and low in saturated fats. They should continue todo their best to maintain an active lifestyle. 2. High PSA: Patient does not report any issues related to this. He states he would like to avoid getting a repeat prostate biopsy in the future. -He states that he has had a prostate biopsy in the past for his elevated PSA and he states it was negative for malignancy. He states that his urologist did not need to see him consistently for this.He states that he was just told to have his PSA done intermittently. He was told by his urologist that his PSA would likely always be elevated. -We will recheck his PSA today as it has been a couple of years. HEALTH MAINTENANCE: A1c, microalbumin The patient will return for a follow up in: 6-8 months or as needed Orders: Blood work, including PSA Instructions: Incorporate flax ROS: No other symptoms reported other than those noted in HPI VITALS: Visit Vitals BP 124/70 (BP Location: Left arm, Patient Position: Sitting) Pulse 69 Temp 36.6 C (97.8 F) (Temporal) Ht 1.88 m (6' 2) Wt 115 kg (253 lb 9.6 oz) SpO2 98% BMI 32.56 kg/m Smoking Status Never Smoker BSA 2.4 m PHYSICAL EXAM: General: No apparent distress, patient appears non-toxic and comfortable HEENT: Atraumatic, normocephalic, PERRLA, EOMI, clear conjunctivae Respiratory: Clear to auscultation bilaterally, no wheezing, no conversational dyspnea Cardiovascular: Regular rate and rhythm, S1 and S2 normal Abdomen: Nontender, nondistended, normal bowel sounds Musculoskeletal: No acute deformities Psych: Normal affect. No significant anxiety or depression. -The above orders/referrals were discussed with the patient and they were agreeable with having these done. -Patient is agreeable with their current medication regimen. -Patient has been made aware to seek emergent medical attention should any of their symptoms persist, change, or worsen in any way, if they are to develop any acute or significant symptoms that are new, or if they are to have any adverse reactions to any of their medications. The patient was comfortable with the above plan. * Noni May RN - 03/04/2022 9:30 AM EDT In office today for a follow up appt. No verbalized concerns Fasting today. documented [facility] Instructions* Patient Instructions* Bianca Capone MD - 03/04/2022 9:30 AM EDT -2 tablespoons of ground flaxseed in your food every day. It works best to incorporate this in foods such as oatmeal, smoothies, applesauce, chili, or other thick liquids. Once you open the bag, please store this in your fridge or freezer to keep it fresh. You can find flaxseed at your local grocery store or on [employer]. documented in this encounterN[facility]01-13-[facility]22 History of Present illness Narrative* Noni May RN - 10/28/2021 10:30 AM EST Right arm cleansed with alcohol wipe. Immunization given in right deltoid. Pt tolerated procedure well. * Marry James RN - 10/28/2021 10:30 AM EST RAC cleansed with alcohol, specimens obtained using 22g x 1 1/4 needle. 1 mint and 1 lavender tubecollected. Dressing applied to site, patient toleraed procedure well. Diabetic foot exam: Left: Pulses Dorsalis Pedis: present Reflexes 2+ Vibratory sensation diminished Proprioception normal Sharp/dull discrimination diminished Filament test diminished Right: Pulses Dorsalis Pedis: diminished Reflexes 2+ Vibratory sensation diminished Proprioception normal Sharp/dull discrimination diminished Filament test diminished Callous formation: No * Bianca Capone MD - 10/28/2021 10:30 AM EST The patient comes in today for a regularly scheduled appointment. The patient's recent office visit, labs, and x-rays were reviewed prior to examining the patient. The patient's current medication list was reviewed with the patient. I have reviewed the past, family and social histories as recorded by the clinical staff, and I verify the documentation is accurate. CHIEF COMPLAINT: The patient is a pleasant 66 y.o. male who presents for follow up of: Type 2 diabetes, mixed hyperlipidemia, hypertriglyceridemia. Problem based HPI and A/P: 1. Diabetes type 2, mixed hyperlipidemia, goal LDL <70: Patient states he is now off of insulin.He is tolerating Trulicity, 1.5 mg daily, Januvia, metformin, and atorvastatin. He does not report any side effects to this therapy. States fasting blood sugars have increased since he stopped insulin, but overall, he is doing well. States he prefers Trulicity to being on insulin. Lab Results Component Value Date HGBA1C 8.4 (H) 02/23/2021 HGBA1C 9.3 (H) 03/18/2020 HGBA1C 9.0 (H) 06/26/2019 Lab Results Component Value Date MICROALBCREA 28 02/23/2021 LDLDIRECT 51.8 02/23/2021 A/P: -Reviewed fasting blood sugars which are higher after the patient stopped insulin. -Increase trulicity to 3mg weekly since patient is tolerating this well. -Patient advised to check fasting blood sugars 3x weekly, and to send us a [employer] message in 4-6 weeks with blood sugars after increasing truliciy. -Check A1c and fasting lipid panel today, in addition to monofilament. -Patient should continue to do their absolute best to maintaining a healthy diet, one that is high in fruits and vegetables, low in processed foods, and low in saturated fats. They should continue todo their best to maintain an active lifestyle. HEALTH MAINTENANCE: Influenza The patient will return for a follow up in: February/March. , Orders: A1c, fasting lipid panel, monofilament Referrals: Vaccines: Meds: Increase Trulicity, send MyChart message in 4 to 6 weeks with fasting blood sugars ROS: No other symptoms reported other than those noted in HPI VITALS: Visit Vitals BP 128/72 (BP Location: Right arm, Patient Position: Sitting) Pulse 65 Temp 36.7 C (98 F) (Temporal) Wt 119 kg (262 lb 12.8 oz) SpO2 98% BMI 33.29 kg/m Smoking Status Never Smoker BSA 2.45 m PHYSICAL EXAM: General: No apparent distress, patient appears non-toxic HEENT: Atraumatic, normocephalic, PERRLA, EOMI, clear conjunctivae Respiratory: Clear to auscultation bilaterally, no wheezing, no conversational dyspnea Cardiovascular: Regular rate and rhythm, S1 and S2 normal, no cyanosis Abdomen: Nontender, nondistended, normal bowel sounds Musculoskeletal: No obvious deformities Psych: Normal affect. No significant anxiety or depression. -The above orders/referrals were discussed with the patient and they were agreeable with having these done. -Patient is agreeable with their current medication regimen. -Patient has been made aware to seek emergent medical attention should any of their symptoms persist, change, or worsen in any way, if they are to develop any acute or significant symptoms that are new, or if they are to have any adverse reactions to any of their medications. The patient was comfortable with the above plan. * Noni May RN - 10/28/2021 10:30 AM EST In office today for a follow up. BS numbers. Averaging 190 before breakfast. Fasting today documented in this encounterN[facility]01-13-[facility]22 Instructions* Patient Instructions* Bianca Capone MD - 10/28/2021 10:30 AM EST -Increase trulicity to 3mg weekly. -Check fasting blood sugars 3x weekly, please send us a [employer] message in 4-6 weeks with blood sugars after increasing truliciy. documented in this encounterN[facility]07-13-[facility] History of Present illness Narrative* Bianca Capone MD - 04/27/2021 3:00 PM EDT The patient comes in today for a regularly scheduled appointment. The patient's recent office visit, labs, and x-rays were reviewed prior to examining the patient. The patient's current medication list was reviewed with the patient. I have reviewed the past, family and social histories as recorded by the clinical staff, and I verify the documentation is accurate. CHIEF COMPLAINT: The patient is a very pleasant 65 y.o. male who presents for follow up of: Diabetes type 2, uncontrolled, hyperlipidemia, goal LDL less than 70. Problem based HPI and A/P: 1. Diabetes type 2, uncontrolled, hyperlipidemia: Last A1c in February was 8.4%, which decreased from 9.3%. At the last visit, his glyburide was switched to Januvia, which she is tolerating well. He is also doing well on Metformin, 1000 mg twice daily. Has been on Lantus, 50 units nightly. Denies hypoglycemic episodes. States he has noticed that if he eats a healthy and light dinner, his fasting blood sugars will be in the very low 100s, but if he eats a normal-sized dinner, we will noticed that his blood sugars are in the 140s. A/P: -Start trulicity, low dose, once weekly to see if it will allow for better control of A1c and hopefully eventually we can decrease his insulin requirements. -Side effects of the medication discussed and he is comfortable with them. He has no personal or family history of endocrine type tumors. -Told him to make sure he lets me know if he has any low blood sugar episodes at which point we will decrease his insulin. -Patient also given the below instructions: -Increase fiber throughout the day in all of your meals and make sure dinner is the healthiest meal. -Please send us your blood sugars in 3 weeks and if you are doing well with trulicity, we will maximize the dose, and hopefully, we can decrease your insulin over time. 2. Elevated PSA, last PSA in March 2020 was 8.4, negative prostate biopsies in the past: Patient does not report any new urinary or constitutional symptoms. He states that he has had a prostate biopsyin the past for his elevated PSA and he states it was negative for malignancy. He states that his urologist did not need to see him consistently for this. He states that he was just told to have his PSA done intermittently. He was told by his urologist that his PSA would likely always be elevated. A/P: -Discussed with the patient his last PSA testing and his prior history of having a benign prostate biopsy. -We will recheck his PSA intermittently and if there are any changes in this level or if he has anyother new symptoms related to this, we will send him back to urology. -We will check his PSA with his next lab draw in August. HEALTH MAINTENANCE: Hepatitis B vaccination at the next visit because the patient is currently in the midst of his Covid series The patient will return for a follow up in: August, check A1c and PSA at this time Orders: Referrals: Vaccines: Hepatitis B vaccination at the next visit Meds: Trulicity ROS: No other symptoms reported other than those noted in HPI VITALS: Visit Vitals BP 138/76 (BP Location: Left arm, Patient Position: Sitting) Pulse 70 Temp 37 C (98.6 F) (Temporal) Wt 128 kg (281 lb 12.8 oz) SpO2 97% BMI 35.70 kg/m Smoking Status Never Smoker BSA 2.53 m PHYSICAL EXAM: General: No apparent distress, patient appears non-toxic and comfortable during the exam HEENT: Atraumatic, normocephalic, PERRLA, EOMI, clear conjunctivae Respiratory: Clear to auscultation bilaterally, no wheezing, no conversational dyspnea Cardiovascular: Regular rate and rhythm, S1 and S2 normal, no cyanosis Abdomen: Nontender, nondistended, normal bowel sounds Musculoskeletal: No obvious deformities Psych: Normal affect. No significant anxiety or depression. -The above orders/referrals were discussed with the patient and they were agreeable with having these done. -Patient is agreeable with their current medication regimen. -Patient has been made aware to seek emergent medical attention should any of their symptoms persist, change, or worsen in any way, if they are to develop any acute or significant symptoms that are new, or if they are to have any adverse reactions to any of their medications. The patient was comfortable with the above plan. * Marry James RN - 04/27/2021 3:00 PM EDT -patient here for follow up on blood sugars. documented in this encounterN[facility]07-13-2021 Instructions* Patient Instructions* Bianca Capone MD - 04/27/2021 3:00 PM EDT -Start trulicity, low dose, once weekly. -Increase fiber throughout the day in all of your meals and make sure dinner is the healthiest meal. -Please send us your blood sugars in 3 weeks and if you are doing well with trulicity, we will maximize the dose, and hopefully, we can decrease your insulin over time. documented in this encounterNem[facility]05-11-2021 History of Present illness Narrative* Bianca Capone MD - 02/23/2021 10:30 AM EDT Patient presents for follow up visit. Would like to know if he should get an Rx for pen needles. - would [facility] to get them from [facility]. Would like to discuss COVID vaccine. Diabetic foot exam: Left: Reflexes 1+ Proprioception normal Sharp/dull discrimination absent Filament test absent Right: Reflexes 1+ Proprioception normal Sharp/dull discrimination absent Filament test absent Cleansed with alcohol, lavender, mint and gold tube obtained, bleeding controlled, Band-Aid applied, tubes labeled Attempt- 1 Location- RAC Tolerated- well * Bianca Capone MD - 02/23/2021 10:30 AM EDT The patient comes in today for a regularly scheduled appointment. The patient's recent office visit, labs, and x-rays were reviewed prior to examining the patient. The patient's current medication list was reviewed with the patient. I have reviewed the past, family and social histories as recorded by the clinical staff, and I verify the documentation is accurate. CHIEF COMPLAINT: The patient is a pleasant 65 y.o. male who presents for follow up of: Uncontrolled diabetes type 2,LDL goal less than 70, hypertension. Problem based HPI and A/P: Labs due in March. 1. Diabetes type 2, uncontrolled, LDL goal less than 70: Checks his FBS but hasn't been writing them down. Tolerating his Lantus, 10 in the morning and 40 units in the evening, Januvia 50 mg, without side effects. Denies hypoglycemic episodes. States he sometimes forgets to take the morning dose of Lantus. Patient states he has not been good about eating healthy. States that when he eats healthy, his fasting blood sugars are typically in the low 100s. States his last diabetic eye exam was 2 to 3 years ago. Tolerating atorvastatin without side effects. A/P: -Check all labs today, including microalbumin, will also check monofilament. -Change lantus to 50 units in the evening since you sometimes forget to take your morning dose. -Increase januvia to 100mg daily. -Write down fasting blood sugars and bring them to every appointment. -Referred to ophthalmology for diabetic eye exams. 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 He is counseled regarding the fact that diabetic retinopathy can cause permanent blindness. -More fruits and vegetables with every single meal. -Continue atorvastatin for now. -Follow-up in April so we can continue to monitor his diabetes very closely. 2. Hypertension Patient is tolerating losartan, 25 mg without side effects. He does not report any new cardiac or respiratory symptoms. A/P: -Increase losartan to 50mg for better blood pressure control. My goal is for his blood pressure to be closer to 120s over 80s in order to decrease the risk of underlying cardiovascular or renal disease in the setting of diabetes. -He is advised to let me know should he have any orthostatic symptoms with increasing this dose. -He is aware of the importance of improving his diet and decreasing salt intake. HEALTH MAINTENANCE: Diabetic eye exam The patient will return for a follow up in: April Orders: Labs, including A1c, monofilament, microalbumin, done today Referrals: Ophthalmology referral placed Vaccines: Meds: Increase Januvia to 100 mg Switch Lantus to 50 units in the evening Increase losartan to 50 mg Patient instructed to bring fasting blood sugars to the next visit ROS: No other symptoms reported other than those noted in HPI VITALS: Visit Vitals BP 134/75 Pulse 57 Temp 36.8 C (98.3 F) Wt 128 kg (283 lb 3.2 oz) SpO2 97% BMI 35.87 kg/m Smoking Status Never Smoker BSA 2.53 m PHYSICAL EXAM: General: No apparent distress, patient appears non-toxic and comfortable during the visit HEENT: Atraumatic, normocephalic, PERRLA, EOMI, clear conjunctivae Respiratory: Clear to auscultation bilaterally, no wheezing, no conversational dyspnea Cardiovascular: Bradycardic, regular rhythm, S1 and S2 normal, no cyanosis Abdomen: Nontender, nondistended, normal bowel sounds Musculoskeletal: No new deformities Psych: Normal affect. No significant anxiety or depression. -The above orders/referrals were discussed with the patient and they were agreeable with having these done. -Patient is agreeable with their current medication regimen. -Patient has been made aware to seek emergent medical attention should any of their symptoms persist, change, or worsen in any way, if they are to develop any acute or significant symptoms that are new, or if they are to have any adverse reactions to any of their medications. The patient was comfortable with the above plan. Total [id number] time spent during the office visit, in minutes -15 Time spent for documentation, in minutes -10 Time spent to review the chart, and for coordination of care in minutes -5 documented in this encounterNem[facility]05-11-2021 Instructions* Patient Instructions* Bianca Capone MD - 02/23/2021 10:30 AM EDT -Change lantus to 50 units in the evening since you sometimes forget to take your morning dose. -Increase januvia to 100mg daily. -Write down fasting blood sugars and bring them to every appointment. -More fruits and vegetables with every single meal. -Flaxseed - 2 tablespoons of ground flaxseed daily -Increase losartan to 50mg. [facility]* Diagnosis Hypothyroidism, unspecified type- Primary Type 2 diabetes mellitus with diabetic mononeuropathy, with long-term current use of insulin (CMS/HCC) Pure hyperglyceridemia High prostate specific antigen (PSA) Type 2 diabetes mellitus with diabetic mononeuropathy (CMS/HCC) [facility]* Diagnosis Mixed hyperlipidemia- Primary Type 2 diabetes mellitus with diabetic mononeuropathy, with long-term current use of insulin ([facility]/HCC) Immunization due High prostate specific antigen (PSA) documented in [facility] encounter [facility]* Diagnosis Flu- Primary Influenza with other respiratory manifestations Mixed hyperlipidemia Type 2 diabetes mellitus with diabetic mononeuropathy, with long-term current use of insulin ([facility]/HCC) Pure hyperglyceridemia documented [facility]* Diagnosis Type 2 diabetes mellitus with diabetic mononeuropathy, with long-term current use of insulin (CMS/HCC)- Primary Hypothyroidism, unspecified type High prostate specific antigen (PSA) documented [facility]* Diagnosis Immunization due- Primary Type 2 diabetes mellitus with diabetic mononeuropathy, with long-term current use of insulin (CMS/HCC) Mixed hyperlipidemia Polyp of colon, unspecified part of colon, unspecified type documented [facility] noteNo assessment information availableSt. [facility] Work Phone: Reason for referral (narrative)* Consultation (Routine) Status Reason Specialty Diagnoses / Procedures Referred By Contact Referred To Contact Authorized Specialty Services Required Ophthalmology Diagnoses Type 2 diabetes mellitus with diabetic mononeuropathy, with long-term current use of insulin (CMS/HCC) Type 2 diabetes mellitus with diabetic mononeuropathy (CMS/HCC) Bianca Capone MD [address] [place] [phone] [facility] SystemsReason for referral (narrative)No reason for referral information availableManchester Intrins[facility] Services Work Phone: Summary Purpose Family History No Family History Records Found Relationship Condition Age at Onset Recorded Date/T katie Not Specified Malignant neoplasm of skin Unknown Malignant neoplasm of colon Unknown Diabetes mellitus Unknown Anxiety Unknown Cardiac disease Unknown Cerebrovascular accident (CVA) Unknown Advance Directives No Advanced Directives Records FoundDocuments on File Type Date Recorded Patient Caustic Preparer Expl anation Advance Directives and Living Will Power of Meter Reading Clerk Documents on File Type Date Recorded Patient Caustic Preparer Expl anation Advance Directives and Living Will Power of Meter Reading Clerk Reason for Referral Specialty Diagnoses / Procedures Referred By Contac t Referred To Contact Gastroenterology Diagnoses Polyp of colon, unspecified part of colon, unspecified type Procedures Colonoscopy Bianca Capone MD [address] [place] [phone] Referral ID Status Reason Start Date Expiration Date V isits Requested Visits Authorized [id number] Pending Review 08/16/2022 08/16/2023 1 1 Chief Complaint and Reason for Visit Chief Complaint Admit Date MYXOID CYST R HAND May 12, 2025 9:51 am Reason for Visit Admit Date Mucous cyst of finger May 12, 2025 9: 51am Additional Source Comments (unrecognized sect ion and content) No Status Records FoundNo Status Records FoundNo Status Records FoundNo Status Records FoundNo Status Records Found INFORMATION SOURCE (unrecogn ized section and content) DATE CREATED AUTHOR 04/05/2018 [facility] DATE CREATED AUTHOR AUTHOR'S ORGANIZ ATION 03/19/2020 [facility] DATE CREATED AUTHOR AUTHOR'S ORGANIZ ATION 03/25/2023 [facility] DATE CREATED AUTHOR AUTHOR'S ORGANIZ ATION 05/08/2025 [facility] DATE CREATED AUTHOR AUTHOR'S ORGANIZ ATION 07/07/2025 [facility] Reason for Visit (unrecogniz ed section and content) Reason Comments Follow-up Reason Comments Follow-up Care Teams (unrecognized sec tion and content) Crystal Calibrator Relationship Specialty Start Date End Date Bianca Capone MD [address] [place] [phone] PCP - General General 12/24/18 Crystal Calibrator Relationship Specialty Start Date End Date Bianca Capone MD [address] [place] [phone] PCP - General General 12/24/18 Crystal Calibrator Relationship Specialty Start Date End Date Bianca Capone MD [address] [place] [phone] PCP - General General 12/24/18 Team Status: Active Member Role/Relationship Status Dates Dr. Parish Henderson MD Primary Care Provider Active Team Status: Inactive Member Role/Relationship Status Dates Dr. Pilar Cole MD Attending Provider Active Start: May 12, 2025 End: May 12, 2025 Dr. Parish Henderson MD Primary Care Provider Active Start: May 12, 2025 End: May 12, 2025 Dr. Parish Henderson MD Referring Provider Active Start: May 12, 2025 End: May 12, 2025 Team Status: Inactive Member Role/Relationship Status Dates Dr. Parish Henderson MD Primary Care Provider Active Start: May 12, 2025 End: May 12, 2025 Dr. Pilar Cole MD Attending Provider Active Start: May 12, 2025 End: May 12, 2025 Dr. Pilar Cole MD Referring Provider Active Start: May 12, 2025 End: May 12, 2025 Goals (unrecognized section and content) Goals may be documented in a n alternate sectionGoals may be documented in an alternate section FOR RECORDS PERTAINING TO PATIENTS WHO ARE OR HAVE BEEN ENROLLED IN A CHEMICAL DEPENDENCY/SUBSTANCEABUSE PROGRAM, SOME INFORMATION MAY BE OMITTED. This clinical summary was aggregated from multiple sources. Caution should be exercised in using it in the provision of clinical care. This summary normalizes information from multiple sources, and as a consequence, information in this document may materially change the coding, format and clinical context of patient data. In addition, data may be omitted in some cases. CLINICAL DECISIONS SHOULD BE BASED ON THE PRIMARY CLINICAL RECORDS. [facility] HospitalPix[facility]. provides no warranty or guarantee of the accuracy or completeness of information in this document.
[2025-07-09] MEDS: Lactated Ringers 1,000 ML 15 ML IV (06:28)
--- NOTE | 2025-07-09 06:44 | PRE.ANES_ITS ---
ASA Classification* ASA Classification ASA Classification: 3 Assessment & Plan Anesthesia* Anesthesia Assessment Anesthesia Assessment: Discussed sedation and/or anesthesia options, risks, benefits, and alternatives with patient/parents/legal guardian/POA. Questions invited. The patient/parents/legal guardian/POA seems to understand and agrees to proceed with anesthesia plan. Reviewed the physical assessment, medical history, allergy history and patient home medications list prior to surgery/procedure/anesthetic and documented any changes. Performed airway and anesthesia risk assessments. 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 When Was Last Pacemaker Check QUESTION #4 FULL TEXT: You/Your Family Experience fever (hyperthermia) with Anesthesia Last Oral Intake Last Oral intake: Last Oral Intake NPO since 21:30 07/09/25 06:20 Meds taken in AM with sips of Yes 07/09/25 06:20 water? Meds patient instructed to take am of surgery PONV PONV - electric power line repairer: PONV - electric power line repairer Female No 06/27/25 15:19 HX of Motion Sickness No 06/27/25 15:19 HX of N/V After Surgery Yes 06/27/25 15:19 Non-Smoker Yes 06/27/25 15:19 Duration of Surgery greater Yes 06/27/25 15:19 than 60 minutes Number of Risk Factors 3 06/27/25 15:19 PONV Score Moderate Risk 06/27/25 15:19 Height & Weight Height & Weight: Anesthesia: Height & Weight Height 6 ft 1 in 07/09/25 06:20 Weight: 108 kg 07/09/25 06:20 Body Mass Index (BMI) 31.4 07/09/25 06:20 Respiratory Assessment Respiratory Assessment - electric power line repairer: Respiratory Tract Infection Hx - electric power line repairer Hx Respiratory Tract Infection No 06/27/25 15:19 STOP Sleep Apnea STOP Sleep Apnea - electric power line repairer: STOP Sleep Apnea - electric power line repairer Hx Hypertension Yes: PER PT, CONTROLLED ON 06/27/25 15:19 MEDS Hx Sleep Apnea No 06/27/25 15:19 CPAP BIPAP Do you snore loudly (louder No 06/27/25 15:19 than talking or can be heard Do you often feel tired/ No 06/27/25 15:19 fatigued/ sleepy during daytime? Has anyone observed you stop No 06/27/25 15:19 breathing during sleep? STOP Results Negative 06/27/25 15:19 QUESTION #5 FULL TEXT : Do you snore loudly (louder than talking or can be heard through closed doors)? Tobacco Use History Tobacco Use History - electric power line repairer: Tobacco Use History - electric power line repairer Tobacco Use Smoking Status Never smoker 06/27/25 15:19 Hx Tobacco Use No 06/27/25 15:19 Years Smoking Packs Smoked per Day Smoking Cessation Date was within the last 15 years Hx Smoking Cessation Date Hx Smoking Cessation Counseling Hematologic Medial History Hematologic Hx - electric power line repairer: Hematologic Medical Hx - lead former Hx of Blood Transfusion No 06/27/25 15:19 Hx of Transfusion in last 3 No 06/27/25 15:19 Months Date of Last Transfusion (if within last 3 months) Ever experience any problems No 06/27/25 15:19 with transfusion(s)? Specify any problems Hx of Preganancy in last 3 N/A 06/27/25 15:19 Months Nurse Filling Out Transfusion MGRIFFITH 06/27/25 15:19 & Questions: Date: 06/27/25 06/27/25 15:19 Time: 15:21 06/27/25 15:19 Patient unable to answer at this time (ie. confused, unrespo /Reproduction History /Reproductive History - electric power line repairer: /Reproductive Hx- electric power line repairer Hx Now No 06/27/25 15:19 Gestational Age (in weeks): EDC: Hx Hx Para Hx Section SAB No 06/27/25 15:19 Active Medications Active Medications: Current Medications Generic Name Dose Route Start Last Admin Trade Name Sarah PRN Reason Stop Dose Admin Cefazolin Sodium 2 gm/ Sodium 110 mls @ 200 mls/hr 07/09/25 07:30 Chloride IV 07/09/25 08:02 INTRAOP ONE Lactated Ringer's 1,000 mls @ 15 mls/hr 07/09/25 06:00 07/09/25 06:28 IV 15 mls/hr .Q48H CLARA Administration PFSH Medical History Wears glasses Wears partial dentures Thyroid disease Prostate disease Easy bruising Injury of head and neck Neuropathy Dietary restriction PONV (postoperative nausea and vomiting) Non-smoker Leg cramps History of stress test High cholesterol Hypertension Diabetes Bone fracture Back problem Arthritis Home Medications ?Medication ?Instructions ?Recorded ?Last Taken ?Type atorvastatin 40 mg tablet 40 mg PO QHS 05/12/25 History dulaglutide 3 mg/0.5 mL 3 mg subcut FR 05/12/2506/16 History subcutaneous pen injector (Trulicity) empagliflozin 10 mg tablet 10 mg PO QDAY 05/12/2506/17 History (Jardiance) levothyroxine 25 mcg tablet 25 mcg PO QAM 05/12/25 History losartan 50 mg tablet 50 mg PO QDAY 05/12/2507/08 History metformin 1,000 mg tablet 1,000 mg PO BID 05/12/25 History omega-3 acid ethyl esters 1 gram 2 cap PO BID 05/12/25 07/08/25 History capsule sitagliptin phosphate 100 mg 100 mg PO QDAY 05/12/25 0 07/08/25 History tablet (Januvia) cholecalciferol (vitamin D3) 25 25 mcg PO DAILY 07/08/25 History mcg (1,000 unit) capsule (Vitamin D3) rocio hughes 450 mg capsule 450 mg PO BID 06/27/25 History aspirin 81 mg capsule 81 mg PO DAILY 07/09/2506/17 History Allergy/AdvReac Type Severity Reaction Status Date / Time No Known Allergies Allergy Verified 07/09/25 06:16 Family History Other Anxiety CVA (cerebral vascular accident) Colon cancer Diabetes Heart disease Skin cancer Surgical History History of tonsillectomy History of colonoscopy H/O hernia repair Social History Smoking Status: Never smoker alcohol intake: never substance use type: does not use additional social history: denies use of aspirin and ibuprofen pt denies vaping, denies edibles, denies marijuana use denies any family history of blood clots Review of Systems (Anesthesia) ROS Narrative System reviewed and no additional complaints, except as documented.
--- NOTE | 2025-07-09 07:12 | PCM.HP.STD ---
HPI - General HPI Narrative VIVEK WASHBURN, is a 69 M who initially saw Dr. Cole in consultation in April 2025 for right index finger cyst by tire debeader Dr. Álvarez. He was noting its presence for about 4 months with clear liquid discharge which he attempted self treatment with warm medication which temporarily improve the appearance however it recurred. He also has a history of arthritis unexpectedly diagnosed at recent consultation with suspicion of bone spurring contributing to the cyst formation as previously discussed by Dr. Álvarez. Has medical history significant for diabetes mellitus with A1c levels around 7%. 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 Dr. Cole discussed the etiology and treatment options of mucous cyst and after discussing in detail risk/benefits/alternatives he agreed to proceed with surgical intervention. Surgery was initially scheduled for earlier however due to poison oak reaction near the surgical site it was postponed to today's day. He denies any changes to his medical history, new medications, recent illness, new fever, chills, rashes. General: Denies fever, chills HEENT: Denies headaches, vision changes, sore throat Cardio: Denies chest pain, leg edema Pulmonary: Denies shortness of pain, cough, wheezing GI: Denies nausea, vomiting, diarrhea PFSH Medical History Wears glasses Wears partial dentures Thyroid disease Prostate disease Easy bruising Injury of head and neck Neuropathy Dietary restriction PONV (postoperative nausea and vomiting) Non-smoker Leg cramps History of stress test High cholesterol Hypertension Diabetes Bone fracture Back problem Arthritis Home Medications ?Medication ?Instructions ?Recorded ?Last Taken ?Type atorvastatin 40 mg tablet 40 mg PO QHS 05/12/25 07/08/25 History dulaglutide 3 mg/0.5 mL 3 mg subcut FR 05/12/25 06/27/25 History subcutaneous pen injector (Trulicity) empagliflozin 10 mg tablet 10 mg PO QDAY 05/12/25 07/05/25 History (Jardiance) levothyroxine 25 mcg tablet 25 mcg PO QAM 05/12/25 07/09/25 History losartan 50 mg tablet 50 mg PO QDAY 05/12/25 07/08/25 History metformin 1,000 mg tablet 1,000 mg PO BID 05/12/25 07/08/25 History omega-3 acid ethyl esters 1 gram 2 cap PO BID 05/12/25 07/08/25 History capsule sitagliptin phosphate 100 mg 100 mg PO QDAY 05/12/25 07/08/25 History tablet (Januvia) cholecalciferol (vitamin D3) 25 25 mcg PO DAILY 06/27/25 07/08/25 History mcg (1,000 unit) capsule (Vitamin D3) saw palmetto 450 mg capsule 450 mg PO BID 06/27/25 07/08/25 History aspirin 81 mg capsule 81 mg PO DAILY 07/09/25 07/08/25 History Allergy/AdvReac Type Severity Reaction Status Date / Time No Known Allergies Allergy Verified 07/09/25 06:16 Family History Other Anxiety CVA (cerebral vascular accident) Colon cancer Diabetes Heart disease Skin cancer Surgical History History of tonsillectomy History of colonoscopy H/O hernia repair Social History Smoking Status: Never smoker alcohol intake: never substance use type: does not use additional social history: denies use of aspirin and ibuprofen pt denies vaping, denies edibles, denies marijuana use denies any family history of blood clots ROS ROS Narrative General: Denies fever, chills HEENT: Denies headaches, vision changes, sore throat Cardio: Denies chest pain, leg edema Pulmonary: Denies shortness of pain, cough, wheezing GI: Denies nausea, vomiting, diarrhea Vital Signs Vital Signs Vital Signs: 07/09/25 06:20 07/09/25 06:20 07/09/25 06:46 Temperature 97 F L 97 F L Temperature Source Temporal Pulse Rate 64 64 Respiratory Rate 18 18 Respiratory Pattern Normal Blood Pressure 142/76 H 142/76 H Blood Pressure Mean 98 Blood Pressure Source Monitor Blood Pressure Position Semi-Fowlers Blood Pressure Location Left Arm Pulse Ox 96 96 Oxygen Delivery Method Room Air Room Air Weight Weight: 238 lb 1.588 oz Body Mass Index (BMI) 31.4 Physical Exam Narrative Afebrile/VSS. Lying in bed in no acute distress. No facial asymmetry, moves all extremities spontaneously similarly. No increased respiratory effort, speaks in full sentences without distress. No accessory muscle use. Right index finger notes mucous cyst without drainage, redness or swelling. Sensation intact to light touch in digits Capillary refill less than 2 seconds, digits are well-perfused warm and pink. No other atypical lesions skin is warm and dry. Results Lab / Micro Data Labs: Laboratory Results - last 24 hr 07/09/25 06:15: POC Glucose 167 H Assessment & Plan Assessment/Plan (1) Mucous cyst of finger: PLAN: Excision of mucous cyst today
--- NOTE | 2025-07-09 07:30 | CYST_PTH ---
PATIENT: VIVEK WASHBURN Jr. [place] [facility] [id number] AGE/SX: 69/M ROOM: RE07/09/[address]: Dr. Nithin Cole MD : [id number] BED: DIS: 07/09/2025 SPEC #: [id number] RECD: 07/09/25 08:49 STATUS: CLARIBEL REAj #: [id number] JULIETTE: 07/09/25 07:[address]: Nithin Cole DEPT: SURGICAL PATHOLOGY RECD BY: Curt Tomas ENTERED: 07/09/25 10:37 SP TYPE: Cyst OTHR DR: Dr. Flavia Henderson MD Tissues: A - Finger, NOS Procedures: Surgery Specimen Level IV HEADER OPERATION: Right index finger mucous cyst excision PRE-OP DIAGNOSIS: Mucous cyst of finger TISSUE SUBMITTED: A- Digital mucous cyst MICROSCOPIC DIAGNOSIS A. Right index finger, cyst, biopsy: * Nodular portion of bone and cartilage - see note. * Note: The histologic findings raise consideration of exostosis. Recommend correlation with clinical and imaging findings. MICROSCOPIC DESCRIPTION Slides are reviewed. GROSS DESCRIPTION A. Received in formalin labeled with the patient's name and date of . Designated as digital mucous cyst are 2 salcedo-white tissue fragments, 0.2 cm and 0.4 cm. Entirely submitted in 1 cassette. DC 07/09/2025 CPT:[id number]
[2025-07-09] MEDS: Cefazolin 1 GM/5 ML Vial 2 GM IV (07:34)
[2025-07-09] MEDS: Midazolam 2 MG/2 ML Syringe IV (07:36)
[2025-07-09] MEDS: fentaNYL 100 MCG/2 ML Ampul 50 MCG IV (07:37)
[2025-07-09] MEDS: Lidocaine 1% (20 ml mdv) 20 ML Vial (07:50)
[2025-07-09] MEDS: Lidocaine 1% /Epi 1:100 (50ml) 50 ML VIAL (08:00)
--- NOTE | 2025-07-09 08:34 | PCM.POST.ANE ---
Anesthesia: Postop Eval I Current Vital Signs Temperature: 97 F Pulse Rate: 74 Blood Pressure: 130/71 Respiratory Rate: 16 Pulse Ox: 94 Oxygen Delivery Method: Room Air Assessment Airway patent: Yes Spontaneous unlabored respirations: Yes Mental status: Awake and Calm nausea: No Vomiting: No Anesthesia Complication: No Fluid Hydration Crystalloid volume administer (ml): 400 Total IV fluid infused: 400 Progress Note Anesthesia document: Postop Eval 1 completed: Yes
--- NOTE | 2025-07-09 08:53 | PCM.OPRPT ---
Operative Report (Standard) Operative Information Date of Procedure: 07/09/25 Pre-Operative Diagnosis: Right index finger mucous cyst Post-Operative Diagnosis: Same Surgery/Procedure Performed: Excision right index finger mucous cyst medical office supervisor: Yes Customer Greeter: Christiano Vargas Tasks completed by assistant associate professor: Retracting Type of Anesthesia: Local MAC (10 cc of a 50-50 mixture of quarter percent Marcaine and 1% lidocaine) RN Documented Start/Stop Times: Operation Date: 07/09/25 07:30 Case Time Into Pre-Op 07/09/25 05:55 Out of Pre-Op 07/09/25 07:26 Anesthesia Start 07/09/25 07:34 Into Room 07/09/25 07:34 Procedure Start 07/09/25 07:49 Procedure End 07/09/25 08:22 Anesthesia End 07/09/25 08:30 Out of Room 07/09/25 08:30 Into Recovery 07/09/25 08:32 Into Phase II Recovery 07/09/25 08:46 Out of Recovery 07/09/25 08:46 Procedure Start Time: 07:49 Procedure Stop Time: 08:22 Select all DRAINS/GRAFTS/IMPLANTS that apply: None Estimated Blood Loss: Minimal Specimen collected: Yes Description of specimen(s) removed: Cyst stalk and osteophyte Description of surgery: Indications: Patient is a delightful 69-year-old male with a right index finger digital mucous cyst over the DIP joint. I talked about the risks, benefits, and alternatives of surgery. We talked about treatment with incision over the DIP joint with dissection underneath the cyst with stalk resection for cyst involution and debridement of the dorsal joint and osteophytes. He elected to proceed. Procedure details: Patient was correctly identified in preoperative holding and taken back to the operating room where he was administered sedation. He was prepped and draped in sterile fashion and all proper timeouts were performed. A turnicot was applied with care taken to remove at the end of the case and a 15 blade scalpel was used to make a transverse incision over the dorsal aspect of the DIP joint. Bipolar electrocautery was used to cauterize the dorsal veins over the terminal slip and careful dissection was taken out with tenotomy scissors over the terminal slip which expose the stock of the cyst which was coming from the dorsal aspect of the terminal slip. The cyst stalk was resected with a curette and cauterized with bipolar electrocautery (all from underneath the skin outpouching of the cyst and through the incision). The skin changes from the cyst were left in place to involute. The interval between the terminal slip and the collateral ligaments was entered and a curette was used to carefully debride osteophytes and cyst stock from underneath the terminal slip and adjacent to the terminal slip with care taken to preserve the terminal slip and the collateral ligaments. The wound was irrigated with copious amounts normal saline and Irrisept. The turnicot was removed and hemostasis obtained with bipolar electrocautery and the wound was closed with vertical mattress 4-0 nylon suture. Xeroform Magali, AlumaFoam DIP extension splint and Coban were applied loosely. Patient was awakened and taken the PACU in stable condition and he tolerated the procedure well. Postoperative plan: DIP extension for 1 month. Patient will follow-up in 2 days for wound check and then with me in a week. Antibiotics for 1 week. No getting the wound wet until cleared in clinic. Surgical Findings: Cyst stalk coming from the dorsal surface of the terminal slip over the DIP joint Complications Complications: No
--- NOTE | 2025-07-09 15:51 | POSTOPAN2_ITS ---
Anesthesia Postop Eval I Sum Postop Eval Completion status Anesthesia document: Postop Eval 1 completed: Yes Anesthesia Postop Eval I Summary Anesthesia Postop Eval I Summary: Anesthesia Postop Eval I: Assessment Summary Airway patent Yes 07/09/25 08:34 [email or web address] Spontaneous unlabored Yes 07/09/25 08:34 [email or web address] respirations Mental status Awake,Calm 07/09/25 08:34 [email or web address] nausea No 07/09/25 08:34 STOCK [email or web address] Vomiting No 07/09/25 08:34 [email or web address] Anesthesia Postop Eval I: Fluid Summary Crystalloid volume administer 400 07/09/25 08:34 [email or web address] (ml) Colloids volume administered ( ml) Blood Product volume administered (ml) Total IV fluid infused 400 07/09/25 08:34 [email or web address] Anesthesia Postop Eval I: Summary Notes Anesthesia Complication No 07/09/25 08:34 [email or web address] Anesthesia Complication Comment: Post-operative progress note Anesthesia: Postop Eval II Evaluation Mental status: Awake and Calm Pain Level: 1 nausea: No Vomiting: No Complications Anesthesia Complication: No
--- NOTE | 2025-07-09 15:51 | PCM.POSTANE2 ---
Anesthesia Postop Eval I Sum Postop Eval Completion status Anesthesia document: Postop Eval 1 completed: Yes Anesthesia Postop Eval I Summary Anesthesia Postop Eval I Summary: Anesthesia Postop Eval I: Assessment Summary Airway patent Yes 07/09/25 08:34 [email or web address] [email or web address] Spontaneous unlabored Yes 07/09/25 08:34 CHIEF [email or web address] respirations Mental status Awake,Calm 07/09/25 08:34 CHIEF [email or web address] nausea No 07/09/25 08:34 CHIEF [email or web address] Vomiting No 07/09/25 08:34 CHIEF [email or web address] Anesthesia Postop Eval I: Fluid Summary Crystalloid volume administer 400 07/09/25 08:34 CHIEF [email or web address] (ml) Colloids volume administered ( ml) Blood Product volume administered (ml) Total IV fluid infused 400 07/09/25 08:34 CHIEF [email or web address] Anesthesia Postop Eval I: Summary Notes Anesthesia Complication No 07/09/25 08:34 CHIEF [email or web address] Anesthesia Complication Comment: Post-operative progress note Anesthesia: Postop Eval II Evaluation Mental status: Awake and Calm Pain Level: 1 nausea: No Vomiting: No Complications Anesthesia Complication: No
== END 2025-07-09 10:02 | disposition home or self-care (01) ==
LOC: SDC 05:35 → AC 05:40
PROVIDERS: PCP Student in an Organized Health Care Education/Training Program; Referring Provider Surgery Plastic and Reconstructive Surgery; Visit Provider Surgery Plastic and Reconstructive Surgery
PROC: (CPT 26055; principal; 2025-07-09 07:20)
DX: L72.9 Follicular cyst of the skin and subcutaneous tissue, unspecified (principal); E11.40 Type 2 diabetes mellitus with diabetic neuropathy, unspecified; E78.00 Pure hypercholesterolemia, unspecified; I10 Essential (primary) hypertension; Z79.84 Long term (current) use of oral hypoglycemic drugs; Z79.82 Long term (current) use of aspirin; Z79.899 Other long term (current) drug therapy; Z79.85 Long-term (current) use of injectable non-insulin antidiabetic drugs
CPT/HCPCS: 26160; 01810; 82962; 88304; 88305; J2405